=== PATIENT | female | born 1965 | race African-American/Black ===

== ENCOUNTER 2016-08-18 15:46 | Emergency (ER) | payer MEDICARE, MEDICAID ==
--- NOTE | 2016-08-18 16:04 | ER Document Report ---
ED Medical Screen (RME) - General Stated Complaint: ABDOMINAL PAIN Time seen by provider: 16:01 Mode of Arrival: Ambulatory Information source: Patient Notes: 51 yo female c/o burning periumbilical abdominal pain for 3 days. Initially intermittent, now constant since last night. LMP january or february. Hx hysterectomy. Constipated few weeks , having to use mag citrate. No dusuria. No fever or chills. TRAVEL OUTSIDE OF THE [place] IN LAST 30 DAYS: No - Related Data Allergies/Adverse Reactions: No Known Allergies Allergy (Verified 08/18/16 15:59) Past Medical History - Past Medical History Cardiac Medical History: Reports: Hx Hypertension Pulmonary Medical History: Reports: Hx Bronchitis Neurological Medical History: Reports: Hx Migraine Psychiatric Medical History: Reports: Hx Bipolar Disorder, Hx Depression - Immunizations Hx Diphtheria, Pertussis, Tetanus Vaccination: Yes Physical Exam - Vital signs Vitals: Temp Pulse Resp BP Pulse Ox 98.4 F 86 17 125/71 100 08/18/16 16:01 08/18/16 16:01 08/18/16 16:01 08/18/16 16:01 08/18/16 16:01 Course - Vital Signs Vital signs: Temp Pulse Resp BP Pulse Ox 98.4 F 86 17 125/71 100 08/18/16 16:01 08/18/16 16:01 08/18/16 16:01 08/18/16 16:01 08/18/16 16:01
[2016-08-18 16:39] LABS: ABSOLUTE LYMPHOCYTES (AUTO) 2.1 10^3/uL (0.5-4.7); ABSOLUTE MONOCYTES (AUTO) 0.5 10^3/uL (0.1-1.4); ABSOLUTE NEUT (AUTO) 3.9 10^3/uL (1.7-8.2); BASOPHILS % (AUTO) 0.5 % (0-2); EOSINOPHILS % (AUTO) 0.4 % (0-6); HEMATOCRIT 42.2 % (36.0-47.0); HEMOGLOBIN 13.9 g/dL (12.0-15.5); HGB HCT DIFFERENCE -0.5; LYMPHOCYTES % (AUTO) 32.1 % (13-45); MEAN CORPUSCULAR HGB CONC 32.8 g/dL (32.0-36.0); MEAN CORPUSCULAR VOLUME 82 fl (80-97); MONOCYTES % (AUTO) 7.5 % (3-13); RED BLOOD COUNT 5.14 10^6/uL (3.72-5.28); RED CELL DISTRIBUTION WIDTH 14.8 % (11.5-14.0); SEGMENTED NEUTROPHILS % (AUTO) 59.5 % (42-78); WHITE BLOOD COUNT 6.6 10^3/uL (4.0-10.5)
[2016-08-18 16:43] LABS: APPEARANCE,URINE CLOUDY; BILIRUBIN,URINE NEGATIVE (NEGATIVE); GLUCOSE, URINE NEGATIVE (NEGATIVE); KETONES,URINE NEGATIVE (NEGATIVE); LEUKOCYTE ESTERASE,URINE NEGATIVE (NEGATIVE); NITRITE,URINE NEGATIVE (NEGATIVE); PROTEIN,URINE NEGATIVE (NEGATIVE); URINE SPECIFIC GRAVITY 1.024; UROBILINOGEN,URINE NEGATIVE mg/dL (<2.0)
[2016-08-18 16:57] LABS: ALANINE AMINOTRANSFERASE 38 U/L (9-52); ALKALINE PHOSPHATASE 118 U/L (38-126); ANION GAP 11 (5-19); ASPARTATE AMINO TRANSFERASE 17 U/L (14-36); BILIRUBIN,TOTAL 0.5 mg/dL (0.2-1.3); BLOOD UREA NITROGEN 12 mg/dL (7-20); CALCIUM 9.7 mg/dL (8.4-10.2); CARBON DIOXIDE 31 mmol/L (22-30); CHLORIDE 101 mmol/L (98-107); CREATININE RESULT 1.12 mg/dL (0.52-1.25); GLUCOSE 100 mg/dL (75-110); LIPASE 135.9 U/L (23-300); POTASSIUM 4.3 mmol/L (3.6-5.0); SODIUM 142.8 mmol/L (137-145); TOTAL PROTEIN 7.7 g/dL (6.3-8.2)
[2016-08-18] MEDS ORDERED: LANSOPRAZOLE 30 MG TAB.RAP.DR PO ONE (17:51)
[2016-08-18] MEDS ORDERED: SUCRALFATE 1 GM TABLET PO ONE (17:51)
--- NOTE | 2016-08-18 18:04 | ER Document Report ---
ED General - General Chief Complaint: Abdominal Pain Stated Complaint: ABDOMINAL PAIN Time seen by provider: 18:40 Mode of Arrival: Ambulatory Information source: Patient Notes: 51-year-old female with 2 week history of burning periumbilical and epigastric pain she says her goes up into her midline lower chest. He reports occasional burping with this. She reports that sometimes worse with lying down. She denies vomiting, fever, chills, shortness of breath, diaphoresis, hematemesis, hematochezia, melena, or dysuria. She reports nonproductive cough occasionally over the past month. Patient says she was seen facility [facility] for this several weeks ago and placed on naproxen and tramadol which she patient broke out in a rash with one of those drugs and is not taking them now. He reports he has not seen another healthcare provider for this and hasn't had the symptoms prior to that. Physical Exam: General: Alert, appears well. HEENT: Normocephalic. Atraumatic. PERRLA. Extraocular movements intact. Oropharynx clear. Neck: Supple. Non-tender. Respiratory: No respiratory distress. Clear and equal breath sounds bilaterally. Nontender to palpation Cardiovascular: Regular rate and rhythm. PMI not displaced Abdominal: Normal Inspection. Trace epigastric tenderness bowel sounds positive soft no guarding rebound rigidity. No distension. Back: Non-tender. No deformity or step off. Extremities: Moves all four extremities. No gross deformities Neurological: Moves all extremities well amylase without difficulty speech clear Psychological: Normal affect. Normal Mood. Skin: Warm. Dry. Normal color.am TRAVEL OUTSIDE OF THE [place] IN LAST 30 DAYS: No - Related Data Allergies/Adverse Reactions: No Known Allergies Allergy (Verified 08/18/16 15:59) Past Medical History - General Information source: Patient - Social History Smoking Status: Never Smoker Chew tobacco use (# tins/day): No Frequency of alcohol use: None Drug Abuse: None Family History: Hypertension. denies: CAD Patient has suicidal ideation: No Patient has homicidal ideation: No - Past Medical History Cardiac Medical History: Reports: Hx Hypertension Pulmonary Medical History: Reports: Hx Bronchitis Neurological Medical History: Reports: Hx Migraine Psychiatric Medical History: Reports: Hx Bipolar Disorder, Hx Depression - Immunizations Hx Diphtheria, Pertussis, Tetanus Vaccination: Yes Review of Systems - Review of Systems Constitutional: denies: Chills, Fever EENT: denies: Ear pain, Throat pain Cardiovascular: Chest pain Respiratory: denies: Short of breath Gastrointestinal: Abdominal pain. denies: Vomiting, Blood in vomit, Black stools, Rectal bleeding Genitourinary: denies: Burning Musculoskeletal: denies: Back pain, Leg swelling, Ankle swelling Hematologic/Lymphatic: denies: Swollen glands Neurological/Psychological: denies: Weakness, Numbness Physical Exam - Vital signs Vitals: Temp Pulse Resp BP Pulse Ox 98.4 F 86 17 125/71 100 08/18/16 16:01 08/18/16 16:01 08/18/16 16:01 08/18/16 16:01 08/18/16 16:01 Course - Re-evaluation Re-evalutation: 08/18/16 18:33 Patient has an exam and history consistent with GERD or gastritis. We'll discharge her on Prevacid and Carafate and ask her to follow her physician Dr. halle Ag next week for recheck. Her presentation is very low risk for acute coronary syndrome, pulmonary embolism, or other life-threatening conditions. 08/18/16 18:34 - Vital Signs Vital signs: Temp Pulse Resp BP Pulse Ox 98.4 F 86 17 125/71 100 08/18/16 16:01 08/18/16 16:01 08/18/16 16:01 08/18/16 16:01 08/18/16 16:01 - Laboratory Result Diagrams: 08/18/16 16:25 08/18/16 16:25 Laboratory results interpreted by me: 08/18/16 08/18/16 16:25 16:25 RDW 14.8 H Carbon Dioxide 31 H Est GFR (Non-Af Amer) 52 L - EKG Interpretation by Me Additional EKG results interpreted by me: 08/18/16 18:33 EKG reviewed by myself sinus rhythm 66 no acute change no significant change compared with 08/12/2014 Discharge - Discharge Clinical Impression: Gastritis Qualifiers: Gastritis type: unspecified gastritis Chronicity: acute Gastritis bleeding: without bleeding Qualified Code(s): K29.00 - Acute gastritis without bleeding GERD (gastroesophageal reflux disease) Qualifiers: Esophagitis presence: esophagitis presence not specified Qualified Code(s): K21.9 - Gastro-esophageal reflux disease without esophagitis Condition: Stable Disposition: HOME, SELF-CARE Instructions: Abdominal Pain ([facility]) Additional Instructions: Gastritis You have an inflammation of the stomach called gastritis. This commonly causes upper abdominal pain, nausea, and vomiting. In severe cases, bleeding of the stomach lining can occur. Gastritis can be caused by bacteria or viruses , alcohol, or stomach-irritating drugs. Begin with sips of clear liquids. Take increasing amounts of fluid over the first 24 hours. Then start small amounts of bland foods (such as dry toast , applesauce, mashed potato). Gradually resume your usual diet. You should take antacids every two hours until the pain has subsided. Acid -suppressing drugs may be prescribed as well. Avoid aspirin, caffeine, tobacco , and alcohol. If the abdominal pain worsens, or there is evidence of major bleeding in the stomach (such as black, tarry stool, bloody or black vomit, or lightheadedness), you should return immediately. Call the doctor if you aren't improved in 24 to 36 hours. Prescriptions: Lansoprazole [Prevacid 30 Mg Odt Tablet] 30 mg PO BID #60 tab.rap. Sucralfate [Carafate 1 gm Tablet] 1 gm PO ACHS #120 tablet Referrals: MICHELLE AG MD [Primary Care Provider] - Follow up in 1 week
[2016-08-18 18:46] VITALS: BP 120/74
--- NOTE | 2016-08-18 21:38 | EKG REPORT ---
SEVERITY:- NORMAL ECG - SINUS RHYTHM : Confirmed by: Wil Sears 18-Aug-2016 21:37:36
== END 2016-08-18 18:47 | disposition home or self-care (01) ==
LOC: ER 15:46
DX: K29.00 Acute gastritis without bleeding (principal); K21.9 Gastro-esophageal reflux disease without esophagitis; R10.9 Unspecified abdominal pain; R10.13 Epigastric pain; R10.33 Periumbilical pain; R21 Rash and other nonspecific skin eruption
CPT/HCPCS: 93005; 99284; 36415; 87086; 83690; 85025; 81025; 80053; 81001; 93010; A9270 ×2

== ENCOUNTER → 2016-10-23 | Outpatient (CLI) | payer MEDICARE, MEDICAID | LOC: OD 10:40 | PROVIDERS: ATTEND Physician Assistant | DX: M54.6 Pain in thoracic spine (principal); M54.5 Low back pain | CPT/HCPCS: 72070; 72110 ==

== ENCOUNTER 2017-01-15 04:58 | Emergency (ER) | payer MEDICARE, MEDICAID ==
[2017-01-15 05:06] VITALS: BP 130/70
[2017-01-15] MEDS ORDERED: LIDOCAINE 4%/TETRACAINE 0.5%/EPI 0.18% 5 ML TOPICAL SOLN TOP ONE (05:15)
--- NOTE | 2017-01-15 05:15 | ER Document Report ---
HPI - HPI Patient complains to provider of: Possible abscess Onset: Other - This Onset/Duration: Gradual Quality of pain: Throbbing Pain Level: 2 Context: 51-year-old abstinant, denies , female complaining of a lesion on her right mons pubis that is getting larger and more painful. No fever or chills. No history of MRSA. She has had this in same location in the past and it busted on its own. Associated Symptoms: None Exacerbated by: Walking Relieved by: Denies Similar symptoms previously: No Recently seen / treated by doctor: No - ROS ROS below otherwise negative: Yes Systems Reviewed and Negative: Yes All other systems reviewed and negative - REPRODUCTIVE Reproductive: DENIES: : - DERM Skin Color: Normal, Rafael Hernandez Past Medical History - General Information source: Patient - Social History Smoking Status: Unknown if Ever Smoked Frequency of alcohol use: None Drug Abuse: None Lives with: Alone Family History: Hypertension. denies: CAD Patient has suicidal ideation: No Patient has homicidal ideation: No - Past Medical History Cardiac Medical History: Reports: Hx Hypertension Pulmonary Medical History: Reports: Hx Bronchitis Neurological Medical History: Reports: Hx Migraine Renal/ Medical History: Denies: Hx Peritoneal Dialysis Psychiatric Medical History: Reports: Hx Bipolar Disorder, Hx Depression - Immunizations Hx Diphtheria, Pertussis, Tetanus Vaccination: Yes Vertical Provider Document - CONSTITUTIONAL Agree With Documented VS: Yes Exam Limitations: No Limitations - INFECTION CONTROL TRAVEL OUTSIDE OF THE [place] IN LAST 30 DAYS: No - HEENT HEENT: Normocephalic - NECK Neck: Supple - RESPIRATORY O2 Sat by Pulse Oximetry: 100 - MUSCULOSKELETAL/EXTREMETIES Musculoskeletal/Extremeties: MAEW, FROM - NEURO Level of Consciousness: Awake, Alert, Appropriate - DERM Integumentary: Warm, Dry, Abscess - 1 cm firm follicular abscess right mons pubis Course - Vital Signs Vital signs: Temp Pulse Resp BP Pulse Ox 97.9 F 62 16 130/70 H 100 01/15/17 05:03 01/15/17 05:03 01/15/17 05:03 01/15/17 05:03 01/15/17 05:03 Procedures - Incision and Drainage Right Time completed: 06:29 Type: Simple Anesthetic type: 1% Lidocaine mL's of anesthetic: 3 Blade size: 11 I&D procedure: Betadine prep applied, Sterile dressing applied - packed with corner olf gauze Incision Method: Incision made by scalpel Amount/type of drainage: small pus/blood Discharge - Discharge Clinical Impression: Mons pubis sebaceous abscess, I and D Condition: Good Disposition: HOME, SELF-CARE Instructions: Abscess ([facility]), Post Incision and Drainage, Trimethoprim-Sulfa ( [facility]), Anti-Inflammatory Medication ([facility]) Additional Instructions: warm compress to er if worse take the antibiotics Prescriptions: Ibuprofen [Motrin 800 mg Tablet] 800 mg PO Q8HP PRN #20 tab PRN Reason: Sulfamethoxazole/Trimethoprim [Sulfamethoxazole-Tmp Ds Tablet] 1 each PO BID # 14 tablet Forms: Return to Work
[2017-01-15] MEDS ORDERED: SULFAMETHOXAZOLE/TRIMETHOPRIM 800-160 MG TABLET PO ONE (05:16)
[2017-01-15] MEDS ORDERED: IBUPROFEN 800 MG TABLET PO ONE (05:19)
[2017-01-15] MEDS ORDERED: MUPIROCIN 2% OINTMENT 22 GM TP ONE (06:31)
== END 2017-01-15 06:38 | disposition home or self-care (01) ==
LOC: ER 04:58
PROC: 0H99XZZ Drainage of Perineum Skin, External Approach (ICD-10-PCS; principal; 2017-01-15)
DX: L02.215 Cutaneous abscess of perineum (principal); I10 Essential (primary) hypertension
CPT/HCPCS: 99283; 56405; A9270 ×3; J3490

== ENCOUNTER 2017-01-22 16:30 | Emergency (ER) | payer MEDICARE, MEDICAID ==
--- NOTE | 2017-01-22 18:36 | ER Document Report ---
ED Dizziness/Weakness - General Chief Complaint: Dizziness Stated Complaint: LIGHT HEADED Time Seen by Provider: 01/22/17 18:31 Information source: Patient Notes: Patient is a very pleasant 51-year-old female with past medical history as recorded. She states she has had some intermittent "lightheadedness" and feeling "waves of fairly hot sensations" for the last 6 months. Patient has not had a menstrual period in 3 months. She denies any and all chest pain, abdominal pain, or palpitations. 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 Patient denies any aggravating or relieving factors to the symptoms. TRAVEL OUTSIDE OF THE [place] IN LAST 30 DAYS: No - HPI Patient complains to provider of: Dizziness Onset: Other - See above Onset/Duration: Sudden Quality of pain: No pain Severity: Mild Pain Level: Denies Context: Other - See above Associated symptoms: Other - See above Baseline gait: Walks w/o assistance - Related Data Allergies/Adverse Reactions: No Known Allergies Allergy (Verified 01/22/17 16:59) Past Medical History - General Information source: Patient - Social History Smoking Status: Unknown if Ever Smoked Chew tobacco use (# tins/day): No Smoking Education Provided: No Frequency of alcohol use: None Drug Abuse: None Family History: Hypertension. denies: CAD Patient has suicidal ideation: No Patient has homicidal ideation: No - Past Medical History Cardiac Medical History: Reports: Hx Hypertension Pulmonary Medical History: Reports: Hx Bronchitis Neurological Medical History: Reports: Hx Migraine Renal/ Medical History: Denies: Hx Peritoneal Dialysis Psychiatric Medical History: Reports: Hx Bipolar Disorder, Hx Depression - Immunizations Hx Diphtheria, Pertussis, Tetanus Vaccination: Yes Review of Systems - Review of Systems Constitutional: denies: Fever EENT: denies: Eye discharge, Nose discharge Respiratory: denies: Short of breath Gastrointestinal: denies: Vomiting Genitourinary: denies: Dysuria Musculoskeletal: denies: Leg swelling Skin: Other - no hives. denies: Rash Neurological/Psychological: Other - no slurred speech -: Yes All other systems reviewed and negative Physical Exam - Vital signs Notes: Reviewed vital signs and nursing note as charted by RN. CONSTITUTIONAL: Alert and oriented and responds appropriately to questions. Well -appearing; well-nourished HEAD: Normocephalic; atraumatic EYES: Sclerae non-icteric NECK: Supple without meningismus; non-tender CARD: Regular rate and rhythm; no murmurs, no clicks, no rubs, no gallops; symmetric distal pulses RESP: Normal chest excursion without splinting or tachypnea; breath sounds clear and equal bilaterally ABD/GI: Normal bowel sounds; non-distended; soft, non-tender BACK: The back appears normal and is non-tender to palpation, there is no CVA tenderness EXT: Normal ROM in all joints; non-tender to palpation; no cyanosis, no effusions, no edema SKIN: Normal color for age and race; warm; dry; good turgor; capillary refill < 2 seconds; no acute lesions noted NEURO: CN II through XII are intact. Moves all extremities equally; Motor and sensory function intact PSYCH: The patient's mood and manner are appropriate. Grooming and personal hygiene are appropriate. Course - Re-evaluation Re-evalutation: 01/22/17 18:35 Given the above history and physical examination, I believe that the patient most likely is going through menopause. I will check the patient's hemoglobin level, obtain an EKG, and reassess. 01/22/17 18:45 Heart rate 60, normal sinus rhythm, normal axis, no obvious ST elevation or depression. Normal EKG. 01/22/17 19:11 Hemoglobin as recorded. 01/22/17 19:57 Labs as recorded. Still no pain. VSS. Pt will be d/c'd home with strict return precautions and follow up with the primary OBGYN. - Laboratory Result Diagrams: 01/22/17 18:45 01/22/17 18:45 Laboratory results interpreted by me: 01/22/17 01/22/17 18:45 18:45 MCH 26.8 L RDW 14.3 H Creatinine 1.26 H Est GFR ( Amer) 55 L Est GFR (Non-Af Amer) 45 L Discharge - Discharge Clinical Impression: Hot flashes due to menopause Condition: Good Disposition: HOME, SELF-CARE Additional Instructions: Come back immediately with any headache, chest pain, abdominal pain, weakness or numbness, or any other acute problems. Please follow-up with your CONSTRUCTION SCHED[employer]ER as we have discussed. Referrals: DOLORES GUTHRIE PA-C [Primary Care Provider] - Follow up as needed
[2017-01-22 19:04] LABS: ABSOLUTE LYMPHOCYTES (AUTO) 1.7 10^3/uL (0.5-4.7); ABSOLUTE MONOCYTES (AUTO) 0.4 10^3/uL (0.1-1.4); ABSOLUTE NEUT (AUTO) 2.2 10^3/uL (1.7-8.2); BASOPHILS % (AUTO) 0.6 % (0-2); HEMATOCRIT 41.8 % (36.0-47.0); HEMOGLOBIN 13.4 g/dL (12.0-15.5); HGB HCT DIFFERENCE -1.6; LYMPHOCYTES % (AUTO) 38.3 % (13-45); MEAN CORPUSCULAR HEMOGLOBIN 26.8 pg (27.0-33.4); MEAN CORPUSCULAR VOLUME 84 fl (80-97); MONOCYTES % (AUTO) 8.4 % (3-13); RED BLOOD COUNT 4.99 10^6/uL (3.72-5.28); RED CELL DISTRIBUTION WIDTH 14.3 % (11.5-14.0); SEGMENTED NEUTROPHILS % (AUTO) 51.7 % (42-78); WHITE BLOOD COUNT 4.3 10^3/uL (4.0-10.5)
[2017-01-22 19:19] LABS: ANION GAP 9 (5-19); BLOOD UREA NITROGEN 11 mg/dL (7-20); CALCIUM 9.4 mg/dL (8.4-10.2); CARBON DIOXIDE 25 mmol/L (22-30); CHLORIDE 105 mmol/L (98-107); CREATININE RESULT 1.26 mg/dL (0.52-1.25); GLUCOSE 90 mg/dL (75-110); POTASSIUM 4.9 mmol/L (3.6-5.0); SODIUM 138.9 mmol/L (137-145)
--- NOTE | 2017-01-23 09:17 | EKG REPORT ---
SEVERITY:- NORMAL ECG - SINUS RHYTHM : Confirmed by: Wil Sears 23-Jan-2017 09:17:15
== END 2017-01-22 20:17 | disposition home or self-care (01) ==
LOC: ER 16:30
DX: N95.1 Menopausal and female climacteric states (principal); R42 Dizziness and giddiness
CPT/HCPCS: 36415; 80048; 81025; 84484; 85025; 93005; 93010; 99284

== ENCOUNTER 2017-05-09 16:27 | Emergency (ER) | payer MEDICARE, MEDICAID ==
[2017-05-09] MEDS ORDERED: NORMAL SALINE 1000 ML 1,000 ML IV ONE (17:55)
--- NOTE | 2017-05-09 17:57 | ER Document Report ---
ED Medical Screen (RME) - General Chief Complaint: Weakness Stated Complaint: SHORTNESS OF BREATH Time Seen by Provider: 05/09/17 17:45 Notes: 51-year-old female with a plethora of complaints including hot flashes, dizziness and standing, headache, shortness of breath, night sweats and fatigue. States that these have all been going on for months and is associated with right arm pain. TRAVEL OUTSIDE OF THE [place] IN LAST 30 DAYS: No - Related Data Allergies/Adverse Reactions: No Known Allergies Allergy (Verified 01/22/17 16:59) Home Medications: Current Home Medications Clonidine HCl [Clonidine HCl ER] 0.1 mg PO TID 05/09/17 [History] Hydrocodone/Acetaminophen [Hydrocodon-Acetaminophen 5-325] 1 each PO BID PRN [History] Past Medical History - Social History Frequency of alcohol use: None Drug Abuse: None - Past Medical History Cardiac Medical History: Reports: Hx Hypertension Pulmonary Medical History: Reports: Hx Bronchitis Neurological Medical History: Reports: Hx Migraine Renal/ Medical History: Denies: Hx Peritoneal Dialysis Musculoskeltal Medical History: Reports Hx Arthritis - back Psychiatric Medical History: Reports: Hx Bipolar Disorder, Hx Depression Surgical Hx: Negative - Immunizations Hx Diphtheria, Pertussis, Tetanus Vaccination: Yes Physical Exam - Vital signs Vitals: Temp Pulse Resp BP Pulse Ox 97.7 F 57 L 18 127/73 H 100 05/09/17 16:39 05/09/17 16:39 05/09/17 16:39 05/09/17 16:39 05/09/17 16:39 Interpretation: Bradycardic - Notes Notes: Appears anxious and has mildly pressured speech. Course - Vital Signs Vital signs: Temp Pulse Resp BP Pulse Ox 97.7 F 57 L 20 127/73 H 100 05/09/17 16:39 05/09/17 16:39 05/09/17 17:44 05/09/17 16:39 05/09/17 16:39
[2017-05-09 18:47] LABS: ABSOLUTE LYMPHOCYTES (AUTO) 2.2 10^3/uL (0.5-4.7); ABSOLUTE MONOCYTES (AUTO) 0.5 10^3/uL (0.1-1.4); ABSOLUTE NEUT (AUTO) 2.5 10^3/uL (1.7-8.2); BASOPHILS % (AUTO) 0.8 % (0-2); EOSINOPHILS % (AUTO) 0.8 % (0-6); HEMATOCRIT 41.1 % (36.0-47.0); HEMOGLOBIN 13.8 g/dL (12.0-15.5); HGB HCT DIFFERENCE 0.3; LYMPHOCYTES % (AUTO) 41.7 % (13-45); MEAN CORPUSCULAR HEMOGLOBIN 27.5 pg (27.0-33.4); MEAN CORPUSCULAR HGB CONC 33.7 g/dL (32.0-36.0); MEAN CORPUSCULAR VOLUME 82 fl (80-97); MONOCYTES % (AUTO) 8.9 % (3-13); RED BLOOD COUNT 5.03 10^6/uL (3.72-5.28); RED CELL DISTRIBUTION WIDTH 14.5 % (11.5-14.0); SEGMENTED NEUTROPHILS % (AUTO) 47.8 % (42-78); WHITE BLOOD COUNT 5.3 10^3/uL (4.0-10.5)
[2017-05-09 19:06] LABS: ALANINE AMINOTRANSFERASE 23 U/L (9-52); ALBUMIN 4.1 g/dL (3.5-5.0); ALKALINE PHOSPHATASE 145 U/L (38-126); ANION GAP 10 (5-19); ASPARTATE AMINO TRANSFERASE 19 U/L (14-36); BILIRUBIN,DIRECT 0.3 mg/dL (0.0-0.4); BILIRUBIN,TOTAL 0.6 mg/dL (0.2-1.3); BLOOD UREA NITROGEN 11 mg/dL (7-20); CALCIUM 9.8 mg/dL (8.4-10.2); CARBON DIOXIDE 28 mmol/L (22-30); CHLORIDE 104 mmol/L (98-107); CREATINE KINASE 154 U/L (30-135); CREATININE RESULT 1.06 mg/dL (0.52-1.25); GLUCOSE 90 mg/dL (75-110); POTASSIUM 4.9 mmol/L (3.6-5.0); SODIUM 141.8 mmol/L (137-145); TOTAL PROTEIN 7.5 g/dL (6.3-8.2)
[2017-05-09 19:23] LABS: CREATINE KINASE MB 0.94 ng/mL (<4.55); TROPONIN I < 0.012 ng/mL
--- NOTE | 2017-05-09 19:33 | ER Document Report ---
ED General - General Mode of Arrival: Ambulatory Information source: Patient TRAVEL OUTSIDE OF THE [place] IN LAST 30 DAYS: No <GOPISHAHIDCAYDEN - Last Filed: 05/09/17 19:41> <PENNY CONTRERASALL - Last Filed: 05/09/17 20:34> - General Chief Complaint: Weakness Stated Complaint: SHORTNESS OF BREATH Time Seen by Provider: 05/09/17 17:45 Notes: Patient is a 51-year-old female presented emergency department for multiple complaints that has been going on for the past several months. Her complaints include hot flashes, dizziness when standing, headache, night sweats, fatigue, and lack of appetite. Patient states that she also has right arm pain which has been present for quite some time. Patient has a history of anxiety, depression, and bipolar disorder. Patient states she stopped taking her medications a few days ago because she was tired of taking medications when she didn't feel good. Patient states she was wheezing when she came in but she is not any more. Patient told triage that she takes a sleeping pill. Patient states her last menstrual period was in January or February of this year. Patient states she has seen her PCP about these symptoms and she was given a medication "for hot flashes." Patient has no known allergies. (CAYDEN HORN) This 51-year-old female patient comes emergency room complaining of "when I wake up I get real dizzy and I gets hot like him running a fever". This is been going on for several months. She was seen here on 01/22/2017 complaining of being lightheaded for 6 months at that time negative workup. She complains of hot flashes, and unable to sleep for several months. Her doctor diagnosed menopause and put her on some unknown medication. She also complains of severe headaches when she wakes up. She does have a diagnosis of bipolar disorder and stopped taking her medications, she is vague about when she stopped, and she cannot tell me the name of any of the medication she is supposed to be taking. When she checked then she wrote down that she was wheezing, I asked her about it and she claims she was wheezing when she came in but it has spontaneously resolved. She also complains that she is "I am tired, weak, do not feel like eating". She states she has not been able to eat. This is been going on for quite some time also. Another complaint was pain in the right upper arm which is been getting worse over some time. Review of records shows she weighed 97.3 kg 3 months ago, she is 99.3 kg today. (PRICILLA CONTRERAS) - Related Data Allergies/Adverse Reactions: No Known Allergies Allergy (Verified 01/22/17 16:59) Home Medications: Current Home Medications Clonidine HCl [Clonidine HCl ER] 0.1 mg PO TID 05/09/17 [History] Hydrocodone/Acetaminophen [Hydrocodon-Acetaminophen 5-325] 1 each PO BID PRN [History] Past Medical History - General Information source: Patient - Social History Smoking Status: Never Smoker Cigarette use (# per day): No Chew tobacco use (# tins/day): No Smoking Education Provided: No Frequency of alcohol use: None Drug Abuse: None Family History: Hypertension Patient has suicidal ideation: No Patient has homicidal ideation: No - Past Medical History Cardiac Medical History: Reports: Hx Hypertension Pulmonary Medical History: Reports: Hx Bronchitis Neurological Medical History: Reports: Hx Migraine Musculoskeltal Medical History: Reports Hx Arthritis - back Psychiatric Medical History: Reports: Hx Bipolar Disorder, Hx Depression Surgical Hx: Negative - Immunizations Hx Diphtheria, Pertussis, Tetanus Vaccination: Yes <CAYDEN HORN - Last Filed: 05/09/17 19:41> Review of Systems - Review of Systems Constitutional: See HPI, Malaise, Weakness EENT: No symptoms reported Cardiovascular: See HPI, Dizziness Gastrointestinal: See HPI, Poor appetite Genitourinary: No symptoms reported Female Genitourinary: No symptoms reported Musculoskeletal: No symptoms reported Skin: See HPI Hematologic/Lymphatic: No symptoms reported Neurological/Psychological: See HPI, Headaches -: Yes All other systems reviewed and negative <CAYDEN HORN - Last Filed: 05/09/17 19:41> Physical Exam - Vital signs Interpretation: Normal <CAYDEN HORN - Last Filed: 05/09/17 19:41> <PRICILLA CONTRERAS - Last Filed: 05/09/17 20:34> - Vital signs Vitals: Temp Pulse Resp BP Pulse Ox 97.7 F 57 L 18 127/73 H 100 05/09/17 16:39 05/09/17 16:39 05/09/17 16:39 05/09/17 16:39 05/09/17 16:39 - Notes Notes: GENERAL: Alert, interacts well. No acute distress. HEAD: Normocephalic, atraumatic. EYES: Appear normal. Pupils equal, round, and reactive to light. ENT: Moist mucus membranes, tongue midline. NECK: Full range of motion. Supple. Trachea midline. No carotid bruits. LUNGS: Clear to auscultation bilaterally, no wheezes, rales, or rhonchi. No respiratory distress. HEART: Regular rate and rhythm. No murmurs, gallops, or rubs. ABDOMEN: Soft, non-tender. Non-distended. Normal bowel sounds. EXTREMITIES: Moves all 4 extremities spontaneously. Normal strength. No edema. NEUROLOGICAL: Alert and oriented x3. Normal speech. No focal neurological deficits. GCS 15. PSYCH: Normal affect, normal mood. SKIN: Warm, dry, normal turgor. No rashes or lesions noted. (CAYDEN HORN) Course - Laboratory Result Diagrams: 05/09/17 18:25 05/09/17 18:25 <CAYDEN HORN - Last Filed: 05/09/17 19:41> - Laboratory Result Diagrams: 05/09/17 18:25 05/09/17 18:25 - EKG Interpretation by Ma EKG shows normal: Sinus rhythm, [place], Intervals, QRS Complexes, ST-T Waves Rate: Normal - 58 Rhythm: NSR <PRICILLA CONTRERAS - Last Filed: 05/09/17 20:34> - Vital Signs Vital signs: Temp Pulse Resp BP Pulse Ox 97.7 F 57 L 22 H 119/68 98 05/09/17 16:39 05/09/17 16:39 05/09/17 19:01 05/09/17 19:01 05/09/17 19:01 - Laboratory Laboratory results interpreted by ny: 05/09/17 05/09/17 18:25 18:25 RDW 14.5 H Est GFR (Non-Af Amer) 55 L Alkaline Phosphatase 145 H Creatine Kinase 154 H Discharge <CAYDEN HORN - Last Filed: 05/09/17 19:41> <PRICILLA CONTRERAS - Last Filed: 05/09/17 20:34> - Discharge Clinical Impression: Weakness, Dizziness, Decreased appetite Fatigue Qualifiers: Fatigue type: unspecified Qualified Code(s): R53.83 - Other fatigue Condition: Stable Disposition: HOME, SELF-CARE Additional Instructions: Fatigue Fatigue can be caused by many medical and emotional problems. Fatigue can be an early symptom of infection, or can be caused by chronic infection. It can be a symptom of metabolic diseases like diabetes, hypothyroidism, or anemia. It can result from sleep problems such as sleep apnea. Fatigue can be a symptom of depression. Overuse of alcohol or caffeine can cause fatigue. Many drugs can cause fatigue, either as a side effect or when withdrawing from the drug. Until the evaluation is complete, try to keep up your normal activities. Get regular sleep hours, but avoid oversleeping. Try to get regular exercise. Eliminate alcohol, caffeine, and any unnecessary drugs, herbs, or medicines ( discuss any changes in prescription medicines with your doctor). Contact the doctor if there is any change for the worse. Weakness We did not find a definite cause for your weakness. This may require further medical tests. Weakness can be caused by infection, physical exhaustion , rapid weight loss, dehydration, or medicine side effects. Diseases of the muscles, heart, nerves, and blood vessels can make you weak. Sometimes the problem is simply depression or lack of exercise. You should get plenty of rest. Unless the doctor tells you otherwise, it's usually best to add short periods of regular mild exercise. Eat a nutritious diet with multiple small, low-sugar meals. If symptoms continue, additional medical evaluation will be necessary. Be sure to follow up as instructed. If you become very dizzy, nauseated, or feel like you're going to faint, lie down right away. Wait until the symptoms have passed before you get up again. Stand up slowly. Call the doctor or return if you develop chest pain, abdominal pain, severe headache, irregular heartbeat or very fast pulse, confusion, vision problems, fever, muscular pain, or any other new symptom. //////////////////////////////////////////////////////////////////////////////// //////////////////////////////////////////////////////////////////////////////// ///////////////// Lab work today including serum chemistries, blood counts, and thyroid function tests are all normal. The symptoms you have been experiencing for quite some time are most consistent with depression. You reported that you have stopped taking medication you were prescribed for depression and bipolar disorder. You should follow-up with your primary care provider next week, or your mental health provider to discuss these symptoms that have been going on for such a long time. RETURN TO THE EMERGENCY ROOM IF ANY NEW OR WORSENING SYMPTOMS. Forms: Return to Work Scribe Attestation: 05/09/17 20:23 I personally performed the services described in the documentation, reviewed and edited the documentation which was dictated to the scribe in my presence, and it accurately records my words and actions. (PRICILLA CONTRERAS) Scribe Documentation - Scribe Written by Patrick:: Patrick iLu 05/09/2017 19:30 acting as scribe for :: Flora <CAYDEN HORN - Last Filed: 05/09/17 19:41>
[2017-05-09 20:07] LABS: THYROID STIMULATING HORMONE 1.5 uIU/mL (0.47-4.68)
[2017-05-09 20:57] VITALS: BP 124/81
--- NOTE | 2017-05-10 00:17 | EKG REPORT ---
SEVERITY:- NORMAL ECG - SINUS RHYTHM : Confirmed by: Wil Sears 10-May-2017 00:17:06
== END 2017-05-09 21:03 | disposition home or self-care (01) ==
LOC: ER 16:27
DX: R53.1 Weakness (principal); R42 Dizziness and giddiness; R51 Headache; R61 Generalized hyperhidrosis; R53.83 Other fatigue; R53.81 Other malaise; R63.0 Anorexia; M79.621 Pain in right upper arm; G47.9 Sleep disorder, unspecified; I10 Essential (primary) hypertension; Z78.0 Asymptomatic menopausal state
CPT/HCPCS: 93005; 99285; 96360; 36415; 84439; 82553; 82550; 84443; 85025; 80053; 84484; 84481; 93010; J7030

== ENCOUNTER 2017-05-27 04:09 | Emergency (ER) | payer MEDICARE, MEDICAID ==
[2017-05-27 04:17] VITALS: BP 125/66
[2017-05-27] MEDS ORDERED: KETOROLAC TROMETHAMINE INJ/PF 30 MG/1 ML SDV IM ONE (04:37)
[2017-05-27] MEDS ORDERED: METHOCARBAMOL 500 MG TABLET PO ONE (04:37)
--- NOTE | 2017-05-27 04:43 | ER Document Report ---
ED General - General Chief Complaint: Back Pain Stated Complaint: BACK PAIN Time Seen by Provider: 05/27/17 04:22 Notes: Patient is a 52-year-old female presents with complaint of pain in the lower back. He says she has had this pain for a long time. She started seeing her doctor several months ago. States she has been on hydrocodone for approximately 3-4 months. She says she feels that the medicine is no longer working and that her pain is getting worse. She also notes that she has been having constipation as well. No leg weakness or numbness. She once had some pain radiating into right leg but the pain has since resolved. No loss of bowel control. No urinary retention. No fevers. No new trauma or injuries. No other complaints at this time. TRAVEL OUTSIDE OF THE [place] IN LAST 30 DAYS: No - Related Data Allergies/Adverse Reactions: No Known Allergies Allergy (Verified 01/22/17 16:59) Past Medical History - Social History Smoking Status: Unknown if Ever Smoked Frequency of alcohol use: None Drug Abuse: None Family History: Hypertension Patient has suicidal ideation: No Patient has homicidal ideation: No - Past Medical History Cardiac Medical History: Reports: Hx Hypertension Pulmonary Medical History: Reports: Hx Bronchitis Neurological Medical History: Reports: Hx Migraine Renal/ Medical History: Denies: Hx Peritoneal Dialysis Musculoskeltal Medical History: Reports Hx Arthritis - back Psychiatric Medical History: Reports: Hx Bipolar Disorder, Hx Depression - Immunizations Hx Diphtheria, Pertussis, Tetanus Vaccination: Yes Review of Systems - Review of Systems Notes: My Normal Review Basic REVIEW OF SYSTEMS: CONSTITUTIONAL : Denies fever, chills, or sweats. Denies recent illness. GASTROINTESTINAL: Denies abdominal pain. Denies nausea, vomiting, or diarrhea. Some constipation. GENITOURINARY: Denies difficulty urinating, painful urination, burning, frequency, or blood in urine. MUSCULOSKELETAL: Back pain SKIN: Denies rash or skin lesions. NEUROLOGICAL: Denies sensory or motor loss. ALL OTHER SYSTEMS REVIEWED AND NEGATIVE. Physical Exam - Vital signs Vitals: Temp Pulse Resp BP Pulse Ox 98.4 F 67 16 125/66 95 05/27/17 04:15 05/27/17 04:15 05/27/17 04:15 05/27/17 04:15 05/27/17 04:15 - Notes Notes: General Appearance: Well nourished, alert, cooperative, no acute distress, mild to moderate obvious discomfort. Vitals: reviewed, See vital signs table., No rhonci, No accessory muscle use, good air exchange bilaterally. Back: Patient has 2 very specific areas of tenderness. These areas are the paraspinal musculature around the L1-L2 area of his spine. Over these areas of the musculature is very tight. She does not have significant thoracic tenderness to palpation. She does not have any midline tenderness to palpation. Extremities: strength 5/5 in all extremities, good pulses in all extremities, pain with plantar dorsiflexion against resistance. Distal sensation intact. Patellar reflexes are 2 out of 4 and equal bilaterally. No swelling or tenderness in the extremities, no edema. Skin: warm, dry, appropriate color, no rash Neuro: speech clear, oriented x 3, normal affect, responds appropriately to questions. Sensation intact. Course - Re-evaluation Re-evalutation: 05/27/17 04:50 Patient has chronic back pain. I talked her length about opiate use. It seems that her pain is getting worse and opiates are not working. I talked her about chronic opiate use and how chronic use of opiates is actually detrimental to chronic back pain. Talked about this the upper regulation of opiate receptors and also the effect it has on the bowels being that since starting medication she has been very constipated. We talked about NSAID use in conjunction with muscle relaxers and also physical therapy. I told her she should talk to her primary care physician about alternative therapies outside of opiates such as physical therapy. Patient is agreeable to this. I will prescribe her some muscle relaxers to try to help with her recurrent pain. Encourage her to take NSAIDs as well as Tylenol to help with the pain as well. Patient is no signs of cauda equina syndrome. I feel she is safe to be discharged home. I encouraged her return to ER immediately if she has worsening pain, leg weakness or numbness, loss of bowel control, or inability to urinate. Dictation of this chart was performed using voice recognition software; therefore, there may be some unintended grammatical errors. - Vital Signs Vital signs: Temp Pulse Resp BP Pulse Ox 98.4 F 67 16 125/66 95 05/27/17 04:15 05/27/17 04:15 05/27/17 04:15 05/27/17 04:15 05/27/17 04:15 Discharge - Discharge Clinical Impression: Back pain Qualifiers: Back pain location: low back pain Chronicity: chronic Back pain laterality: bilateral Sciatica presence: without sciatica Qualified Code(s): M54.5 - Low back pain; G89.29 - Other chronic pain; G89.29 - Other chronic pain Condition: Good Disposition: HOME, SELF-CARE Additional Instructions: Please start to cut back on the hydrocodone use until you are no longer taking it. Continued use of hydrocodone will cause your body to become dependent on this medication and will not help the underlying problem with your back. Please talk to your doctor about alternative therapies such as physical therapy to help stretch and strengthen your back muscles. Please return to the ER immediately if you have leg weakness or numbness, loss of bowel control, inability to urinate, fevers, or feel unwell. Please take Motrin 600mg every 6 hours with food in conjunction with Tylenol 500mg every 4 hours. Please do not take Naprosyn, Aleve, or Aspirin when taking the Ibuprofen. Prescriptions: Methocarbamol [Robaxin 500 mg Tablet] 500 mg PO QID PRN #30 tablet PRN Reason: back pain
== END 2017-05-27 04:57 | disposition home or self-care (01) ==
LOC: ER 04:09
DX: G89.29 Other chronic pain (principal); M54.5 Low back pain; Z79.891 Long term (current) use of opiate analgesic; K59.00 Constipation, unspecified; I10 Essential (primary) hypertension
CPT/HCPCS: 99283; 96372; A9270; J1885

== ENCOUNTER 2017-10-22 05:51 | Emergency (ER) | payer MEDICARE, MEDICAID ==
--- NOTE | 2017-10-22 07:29 | ER Document Report ---
ED ENT - General Chief Complaint: Ear Pain Stated Complaint: BACK/EAR PAIN Time Seen by Provider: 10/22/17 07:27 Notes: Patient is a 52-year-old female who presents with sinus congestion and bilateral ear pain. She received a prescription for Flonase by her primary care physician yesterday, but has not filled it. She was complaining of chronic back pain is requesting a refill of her Munger because she is out of them. She denies saddle anesthesia, fevers, difficulty walking, change in bowel or bladder, ear drainage, numbness or tingling. TRAVEL OUTSIDE OF THE [place] IN LAST 30 DAYS: No - Related Data Allergies/Adverse Reactions: No Known Allergies Allergy (Verified 01/22/17 16:59) Past Medical History - General Information source: Patient - Social History Smoking Status: Unknown if Ever Smoked Family History: Hypertension, Reviewed & Not Pertinent - Past Medical History Cardiac Medical History: Reports: Hx Hypercholesterolemia, Hx Hypertension Pulmonary Medical History: Reports: Hx Asthma, Hx Bronchitis Neurological Medical History: Reports: Hx Migraine Renal/ Medical History: Denies: Hx Peritoneal Dialysis Musculoskeltal Medical History: Reports Hx Arthritis - back Psychiatric Medical History: Reports: Hx Bipolar Disorder, Hx Depression - anxiety - Immunizations Hx Diphtheria, Pertussis, Tetanus Vaccination: Yes Review of Systems - Review of Systems Notes: REVIEW OF SYSTEMS: CONSTITUTIONAL: -fevers, -chills EENT: -eye pain, -difficulty swallowing, +nasal congestion, +B/L ear pain CARDIOVASCULAR: -chest pain, -syncope. RESPIRATORY: -cough, -SOB GASTROINTESTINAL: -abdominal pain, -nausea, -vomiting, -diarrhea GENITOURINARY: -dysuria, -hematuria MUSCULOSKELETAL: +back pain, -neck pain SKIN: -rash or skin lesions. HEMATOLOGIC: -easy bruising or bleeding. LYMPHATIC: -swollen, enlarged glands. NEUROLOGICAL: -altered mental status or loss of consciousness, -headache, - neurologic symptoms PSYCHIATRIC: -anxiety, -depression. ALL OTHER SYSTEMS REVIEWED AND NEGATIVE. Physical Exam - Vital signs Vitals: Temp Pulse Resp BP Pulse Ox 98.4 F 62 18 119/73 97 10/22/17 06:08 10/22/17 06:08 10/22/17 06:08 10/22/17 06:08 10/22/17 06:08 - Notes Notes: PHYSICAL EXAMINATION: GENERAL: Well-appearing, well-nourished and in no acute distress. HEAD: Atraumatic, normocephalic. EYES: Pupils equal round and reactive to light, extraocular movements intact, sclera anicteric, conjunctiva are normal. ENT: B/L maxillary nares patent, oropharynx clear without exudates. Moist mucous membranes. Fluid behind B/L TMs. NECK: Normal range of motion, supple without lymphadenopathy LUNGS: Breath sounds clear to auscultation bilaterally and equal. No wheezes rales or rhonchi. HEART: Regular rate and rhythm without murmurs ABDOMEN: Soft, nontender, normoactive bowel sounds. No guarding, no rebound. No masses appreciated. EXTREMITIES: Normal range of motion, no pitting or edema. No cyanosis. NEUROLOGICAL: Cranial nerves grossly intact. Normal speech, normal gait. Normal sensory and motor exams. BACK: PSYCH: Normal mood, normal affect. SKIN: Warm, Dry, normal turgor, no rashes or lesions noted. Course - Re-evaluation Re-evalutation: Patient appears well. Fluid behind her ear is related to her sinus congestion and instructed her to begin antihistamines and nasal steroids. Her back pain is chronic in nature and told her to use anti-inflammatories and follow-up with her primary care physician for a refill of her Munger. No red flag signs for low back pain at this time. - Vital Signs Vital signs: Temp Pulse Resp BP Pulse Ox 97.8 F 69 18 124/78 98 10/22/17 08:44 10/22/17 08:44 10/22/17 08:44 10/22/17 08:44 10/22/17 08:44 Discharge - Discharge Clinical Impression: Sinus congestion Ear pain Qualifiers: Laterality: bilateral Qualified Code(s): H92.03 - Otalgia, bilateral Chronic back pain Qualifiers: Back pain location: low back pain Back pain laterality: unspecified Sciatica presence: without sciatica Qualified Code(s): M54.5 - Low back pain Condition: Stable Disposition: HOME, SELF-CARE Additional Instructions: Take the Zyrtec and use the Flonase to help with her sinus congestion and to help the fluid to drain from behind your ears. Follow-up with your primary care physician to discuss further pain management for your chronic back pain. Sinusitis You have sinusitis, an infection of the sinus cavities of the face. The sinuses are air-filled chambers which open into the inside of the nose. Avoid chemical fumes, pollens, dusts, and smoke (especially cigarette smoke ). Keep the air humidified in your bedroom and work area and take plenty of liquids by mouth. This condition can be serious if the infection spreads. If your symptoms worsen, or if you develop severe headache, high fever, stiff neck, or a rash, you must call the doctor or return for re-evaluation. LOW BACK PAIN: Three out of every four people will have an episode of disabling back pain during their lifetime. Most commonly the pain is due to straining of the muscles and ligaments in the low back. Usual treatment includes: (1) Rest on a firm surface. Avoid lying on your stomach. (2) Ice pack the painful area. After a few days, gentle heat may be used intermittently to relax the area, or ice packs can be continued. (3) Medication may be needed -- muscle relaxers and antiinflammatory medicines are commonly used. (4) As the back improves, exercises are prescribed to strengthen the back and abdominal muscles. Your doctor will advise you on the proper care for your back at each stage in your recovery. You may be better in a few days -- or healing may take several weeks. If new symptoms of a "herniated disc" (radiation of pain, numbness, or tingling down the back of the leg or weakness in the leg) occur, you should be re-examined. Further testing may be necessary. ICE PACKS: Apply ice packs frequently against the painful area. Many different schedules are recommended, such as "20 minutes on, 20 minutes off" or "one hour ice, two hours rest." If you need to work, you may need to go longer between ice treatments. You should plan to have the area ice packed AT LEAST one fourth of the time. The ice should be applied over the wrap, tape, or splint, or over a layer of cloth -- not directly against the skin. Some ice bags have a built-in cloth and can be put directly on the skin. WARM PACKS: After approximately two days, apply gentle heat (such as a heating pad or hot water bottle) for about 20 to 30 minutes about every two hours -- at least four times daily. Warmth and elevation will help you make a more rapid recovery , and will ease the pain considerably. Do not use HOT heat, and never apply heat for longer than 30 minutes. The continuous heat can invisibly damage skin and muscles -- even when no burn is seen on the surface. Damaged muscles can make you MORE sore. FOLLOW-UP CARE: If you have been referred to a physician for follow-up care, call the physician s office for an appointment as you were instructed or within the next two days. If you experience worsening or a significant change in your symptoms, notify the physician immediately or return to the Emergency Department at any time for re-evaluation. Prescriptions: Cetirizine HCl [Zyrtec 10 mg Tablet] 1 tab PO DAILY #14 tablet Referrals: DOLORES GUTHRIE PA-C [Primary Care Provider] - Follow up as needed
[2017-10-22] MEDS ORDERED: CETIRIZINE 10 MG TABLET PO ONE (08:11)
[2017-10-22 08:45] VITALS: BP 124/78
== END 2017-10-22 08:45 | disposition home or self-care (01) ==
LOC: ER 05:51
DX: R68.89 Other general symptoms and signs (principal); H92.03 Otalgia, bilateral; M54.5 Low back pain; E78.00 Pure hypercholesterolemia, unspecified; I10 Essential (primary) hypertension
CPT/HCPCS: 99282; A9270

== ENCOUNTER 2018-02-07 00:41 | Emergency (ER) | payer MEDICARE, MEDICAID ==
--- NOTE | 2018-02-07 01:29 | ER Document Report ---
ED General - General Chief Complaint: Headache Stated Complaint: BLOOD PRESSURE PROBLEM Time Seen by Provider: 02/07/18 01:27 Notes: The patient is a 52-year-old female, past medical history hypertension, bipolar , mild MR, presents by EMS with a mild headache. She has had this headache multiple times in the past and is not taking anything to help. She is also concerned that her blood pressure is elevated since her primary care physician cut her from 2 blood pressure medications to one blood pressure medication after her blood pressures running low. She said Tylenol Motrin has helped her in the past. She denies blurry vision, fevers, neck stiffness, nausea, vomiting , focal weakness, numbness, tingling or chest pain. TRAVEL OUTSIDE OF THE [place] IN LAST 30 DAYS: No - Related Data Allergies/Adverse Reactions: No Known Allergies Allergy (Verified 01/22/17 16:59) Past Medical History - General Information source: Patient - Social History Smoking Status: Unknown if Ever Smoked Family History: Hypertension, Reviewed & Not Pertinent - Past Medical History Cardiac Medical History: Reports: Hx Hypercholesterolemia, Hx Hypertension Pulmonary Medical History: Reports: Hx Asthma, Hx Bronchitis Neurological Medical History: Reports: Hx Migraine Renal/ Medical History: Denies: Hx Peritoneal Dialysis Musculoskeltal Medical History: Reports Hx Arthritis - back Psychiatric Medical History: Reports: Hx Bipolar Disorder, Hx Depression - anxiety - Immunizations Hx Diphtheria, Pertussis, Tetanus Vaccination: Yes Review of Systems - Review of Systems Notes: REVIEW OF SYSTEMS: CONSTITUTIONAL: -fevers, -chills EENT: -eye pain, -difficulty swallowing, -nasal congestion CARDIOVASCULAR: -chest pain, -syncope. RESPIRATORY: -cough, -SOB GASTROINTESTINAL: -abdominal pain, -nausea, -vomiting, -diarrhea GENITOURINARY: -dysuria, -hematuria MUSCULOSKELETAL: -back pain, -neck pain SKIN: -rash or skin lesions. HEMATOLOGIC: -easy bruising or bleeding. LYMPHATIC: -swollen, enlarged glands. NEUROLOGICAL: -altered mental status or loss of consciousness, +headache, - neurologic symptoms PSYCHIATRIC: -anxiety, -depression. ALL OTHER SYSTEMS REVIEWED AND NEGATIVE. Physical Exam - Vital signs Vitals: Temp Pulse Resp BP Pulse Ox 98.7 F 66 18 104/73 98 02/07/18 00:48 02/07/18 00:48 02/07/18 00:48 02/07/18 00:48 02/07/18 00:48 - Notes Notes: PHYSICAL EXAMINATION: GENERAL: Well-appearing, well-nourished and in no acute distress. HEAD: Atraumatic, normocephalic. EYES: Pupils equal round and reactive to light, extraocular movements intact, sclera anicteric, conjunctiva are normal. ENT: nares patent, oropharynx clear without exudates. Moist mucous membranes. NECK: Normal range of motion, supple without lymphadenopathy LUNGS: Breath sounds clear to auscultation bilaterally and equal. No wheezes rales or rhonchi. HEART: Regular rate and rhythm without murmurs ABDOMEN: Soft, nontender, normoactive bowel sounds. No guarding, no rebound. No masses appreciated. EXTREMITIES: Normal range of motion, no pitting or edema. No cyanosis. NEUROLOGICAL: Cranial nerves grossly intact. Normal speech, normal gait. Normal sensory and motor exams. PSYCH: Normal mood, normal affect. SKIN: Warm, Dry, normal turgor, no rashes or lesions noted. Course - Re-evaluation Re-evalutation: Patient's headache is exactly the same as her multiple prior headaches. After Tylenol and NSAIDs, she feels much better and her headache has resolved. Blood pressure is 128/68 instructed her to follow with her primary care physician she is having blood pressure concerns. No symptoms for stroke, meningitis, SAH or ICH at this time. Given strict return precautions and she understands. - Vital Signs Vital signs: Temp Pulse Resp BP Pulse Ox 98.7 F 66 18 104/73 98 02/07/18 00:48 02/07/18 00:48 02/07/18 00:48 02/07/18 00:48 02/07/18 00:48 Discharge - Discharge Clinical Impression: Headache Qualifiers: Headache type: unspecified Headache chronicity pattern: chronic headache Intractability: not intractable Qualified Code(s): R51 - Headache Condition: Stable Disposition: HOME, SELF-CARE Additional Instructions: HEADACHE: The physician does not feel that the headache you are experiencing has a serious underlying cause. Most headaches are due to emotional stress, with resultant muscle tension (tension headache). Occasionally, headaches are secondary to changes in the blood vessels of the scalp (vascular headache and migraine headache). Sometimes, a headache is the first symptom of another developing illness, such as a viral infection. You have no evidence of stroke, bleeding, meningitis, or other serious cause of your headache. The treatment of headaches varies with the severity and cause of the pain. Not all headaches need pain shots. In fact, there is evidence that using narcotics for headaches may make them worse in the long run. The physician will determine the therapy that's in your best interest. If you develop a fever, if the headache is different from any you've previously experienced, or if the headache progressively worsens, then call your physician at once or go to the emergency room. FOLLOW-UP CARE: If you have been referred to a physician for follow-up care, call the physician s office for an appointment as you were instructed or within the next two days. If you experience worsening or a significant change in your symptoms, notify the physician immediately or return to the Emergency Department at any time for re-evaluation. Referrals: DOLORES GUTHRIE PA-C [Primary Care Provider] - Follow up as needed
[2018-02-07] MEDS ORDERED: ACETAMINOPHEN 325 MG TABLET PO ONE (01:50)
[2018-02-07] MEDS ORDERED: NAPROXEN 250 MG TABLET PO ONE (01:50)
[2018-02-07 02:39] VITALS: BP 117/73
== END 2018-02-07 03:49 | disposition home or self-care (01) ==
LOC: ER 00:41
DX: R51 Headache (principal); I10 Essential (primary) hypertension; Z79.899 Other long term (current) drug therapy; J45.909 Unspecified asthma, uncomplicated
CPT/HCPCS: 99283; A9270 ×2

== ENCOUNTER 2018-04-26 21:19 | Emergency (ER) | payer MEDICARE, MEDICAID ==
[2018-04-27] MEDS ORDERED: DIPHENHYDRAMINE HCL 25 MG CAPSULE PO ONE (02:18)
--- NOTE | 2018-04-27 02:20 | ER Document Report ---
ED General - General Chief Complaint: Bee Sting Time Seen by Provider: 04/27/18 02:17 Notes: Patient is a 52-year-old female who presents after being stung on the right hand by a bee apparently earlier today. She states that she believe there is a stinger still in her ear. She notes some itching and irritation to the affected area. She has not tried anything to improve her symptoms. Nothing worsens her symptoms. She denies any shortness of breath, nausea, vomiting, diarrhea, lightheadedness or sensation of difficulty breathing or swallowing. TRAVEL OUTSIDE OF THE [place] IN LAST 30 DAYS: No - Related Data Allergies/Adverse Reactions: No Known Allergies Allergy (Verified 01/22/17 16:59) Past Medical History - General Information source: Patient - Social History Smoking Status: Never Smoker Chew tobacco use (# tins/day): No Frequency of alcohol use: None Drug Abuse: None Family History: Hypertension, Reviewed & Not Pertinent Patient has suicidal ideation: No Patient has homicidal ideation: No - Past Medical History Cardiac Medical History: Reports: Hx Hypercholesterolemia, Hx Hypertension Pulmonary Medical History: Reports: Hx Asthma, Hx Bronchitis Neurological Medical History: Reports: Hx Migraine Renal/ Medical History: Denies: Hx Peritoneal Dialysis Musculoskeletal Medical History: Reports Hx Arthritis - back Psychiatric Medical History: Reports: Hx Bipolar Disorder, Hx Depression - anxiety - Immunizations Hx Diphtheria, Pertussis, Tetanus Vaccination: Yes Review of Systems - Review of Systems Notes: Constitutional: Negative for fever. Cardiovascular: Negative for chest pain. Respiratory: Negative for shortness of breath. Gastrointestinal: Negative for vomiting Musculoskeletal: Negative for back pain. Skin: Positive for bee sting to the right hand Neurological: Negative for weakness or numbness. 10 point ROS negative except as marked above and in HPI. Physical Exam - Vital signs Vitals: Temp Pulse Resp BP Pulse Ox 97.5 F 67 20 131/81 H 99 04/26/18 22:27 04/26/18 22:27 04/26/18 22:27 04/26/18 22:27 04/26/18 22:27 Interpretation: Normal Notes: PHYSICAL EXAMINATION: GENERAL: Well-appearing, well-nourished and in no acute distress. HEAD: Atraumatic, normocephalic. EYES: sclera anicteric, conjunctiva are normal. ENT: Moist mucous membranes. NECK: Normal range of motion LUNGS: Normal work of breathing HEART: 2+ radial pulses bilaterally EXTREMITIES: no pitting or edema. No cyanosis. NEUROLOGICAL: No focal neurological deficits. Moves all extremities spontaneously and on command. PSYCH: Normal mood, normal affect. SKIN: Warm, Dry, normal turgor, there is possibly a very slight amount of erythema between the fourth and fifth digits of the right hand although this is minimally appreciable. No apparent retained foreign body. Course - Re-evaluation Re-evalutation: 04/27/18 02:19 Patient presents with a bee sting to her right hand. I do not appreciate any actual area of an apparent sting. She has no systemic reaction. There is no indication for labs or imaging. At this time will discharge with return precautions and follow-up recommendations. Verbal discharge instructions given a the bedside and opportunity for questions given. Medication warnings reviewed. Patient is in agreement with this plan and has verbalized understanding of return precautions and the need for primary care follow-up as needed. - Vital Signs Vital signs: Temp Pulse Resp BP Pulse Ox 98.2 F 63 20 125/75 99 04/27/18 02:36 04/27/18 02:36 04/27/18 02:36 04/27/18 02:36 04/27/18 02:36 Discharge - Discharge Clinical Impression: Bee sting Qualifiers: Encounter type: initial encounter Injury intent: accidental or unintentional Qualified Code(s): T63.441A - Toxic effect of venom of bees, accidental ( unintentional), initial encounter Condition: Good Disposition: HOME, SELF-CARE Additional Instructions: You have seen for a bee sting. Take antihistamine such as Benadryl or Claritin per box instructions as needed for itching or irritation to the area. You could alternatively or in conjunction with that treatment apply ice to the area. Return for any additional concerns you may have including spreading redness from the area, difficulty breathing, persistent vomiting. Follow-up with your general doctor as needed. Referrals: DOLORES GUTHRIE PA-C [NO LOCAL MD] - Follow up as needed
[2018-04-27 02:42] VITALS: BP 125/75
== END 2018-04-27 02:34 | disposition home or self-care (01) ==
LOC: ER 21:19
DX: T63.441A Toxic effect of venom of bees, accidental (unintentional), initial encounter (principal); Y92.9 Unspecified place or not applicable; E78.00 Pure hypercholesterolemia, unspecified; I10 Essential (primary) hypertension; G43.909 Migraine, unspecified, not intractable, without status migrainosus; F31.9 Bipolar disorder, unspecified
CPT/HCPCS: 99282; A9270

== ENCOUNTER 2018-06-25 13:16 | Emergency (ER) | payer MEDICARE, MEDICAID ==
[2018-06-25] MEDS ORDERED: KETOROLAC TROMETHAMINE 10 MG TABLET PO ONE (14:29)
--- NOTE | 2018-06-25 14:30 | ER Document Report ---
ED Extremity Problem, Lower - General Chief Complaint: Leg Pain Stated Complaint: LEG PAIN Time Seen by Provider: 06/25/18 14:24 Mode of Arrival: Ambulatory Information source: Patient Notes: Chief complaint: Right calf pain History of complain:( obtained from----patient) 53 years old presents today with 2-day history of sharp pain over the upper inner part of the calf muscle on the right side. It occurred while she was laying down and sleeping middle of the night. Since then he is progressively increasing pain. Denies any shortness of breath chest pain. Denies any injury. Denies any recent travel. No previous history Onset: As above Duration: 3 days Severity: Moderate Quality: Sharp Context: Unknown Exacerbating factor and relieving factors: Walking REVIEW OF SYSTEMS: CONSTITUTIONAL : Denies fever, chills, or sweats. Denies recent illness. EENT: Denies eye, ear, throat, or mouth pain or symptoms. Denies nasal or sinus congestion or discharge. Denies throat, tongue, or mouth swelling or difficulty swallowing. CARDIOVASCULAR: Denies chest pain. Denies palpitations or racing or irregular heart beat. Denies ankle edema. RESPIRATORY: Denies cough, cold, or chest congestion. Denies shortness of breath, difficulty breathing, or wheezing. GASTROINTESTINAL: Denies distention. Denies nausea, vomiting, or diarrhea. Denies blood in vomitus, stools, or per rectum. Denies black, tarry stools. Denies constipation. GENITOURINARY: Denies difficulty urinating, painful urination, burning, frequency, blood in urine, or discharge. FEMALE GENITOURINARY: Denies vaginal bleeding, heavy or abnormal periods, irregular periods. Denies vaginal discharge or odor. MUSCULOSKELETAL: Denies back or neck pain or stiffness. Denies joint pain or swelling. SKIN: Denies rash, lesions or sores. HEMATOLOGIC : Denies easy bruising or bleeding. LYMPHATIC: Denies swollen, enlarged glands. NEUROLOGICAL: Denies confusion or altered mental status. Denies passing out or loss of consciousness. Denies dizziness or lightheadedness. Denies headache. Denies weakness or paralysis or loss of use of either side. Denies problems with gait or speech. Denies sensory loss, numbness, or tingling. Denies seizures. PSYCHIATRIC: Denies anxiety or stress. Denies depression, suicidal ideation, or homicidal ideation. ALL OTHER SYSTEMS REVIEWED AND NEGATIVE. PHYSICAL EXAMINATION: GENERAL: Well-appearing, well-nourished and in no acute distress. HEAD: Atraumatic, normocephalic. EYES: Pupils equal round and reactive to light, extraocular movements intact, conjunctiva are normal. ENT: Nares patent, oropharynx clear without exudates. Moist mucous membranes. NECK: Normal range of motion, supple without lymphadenopathy LUNGS: Breath sounds clear to auscultation bilaterally and equal. No wheezes rales or rhonchi. HEART: Regular rate and rhythm without murmurs ABDOMEN: Soft, nontender, nondistended abdomen. No guarding, no rebound. No masses appreciated. Examination of genitals-deferred Musculoskeletal: Normal range of motion, no pitting or edema. No cyanosis. Except right calf the uptake in the region sharp tenderness were noted. No obvious swelling. NEUROLOGICAL: Cranial nerves grossly intact. Normal speech, normal gait. Normal sensory, motor exams PSYCH: Normal mood, normal affect. SKIN: Warm, Dry, normal turgor, no rashes or lesions noted. Dictation was performed using [email or web address] voice recognition software TRAVEL OUTSIDE OF THE [place] IN LAST 30 DAYS: No - Related Data Allergies/Adverse Reactions: No Known Allergies Allergy (Verified 06/25/18 13:18) Past Medical History - Social History Smoking Status: Never Smoker Chew tobacco use (# tins/day): No Frequency of alcohol use: None Drug Abuse: None Family History: Hypertension, Reviewed & Not Pertinent Patient has suicidal ideation: No Patient has homicidal ideation: No - Past Medical History Cardiac Medical History: Reports: Hx Hypercholesterolemia, Hx Hypertension Pulmonary Medical History: Reports: Hx Asthma, Hx Bronchitis Neurological Medical History: Reports: Hx Migraine Renal/ Medical History: Denies: Hx Peritoneal Dialysis Musculoskeletal Medical History: Reports Hx Arthritis - back Psychiatric Medical History: Reports: Hx Bipolar Disorder, Hx Depression - anxiety - Immunizations Hx Diphtheria, Pertussis, Tetanus Vaccination: Yes Physical Exam - Vital signs Vitals: Temp Pulse Resp BP Pulse Ox 98.3 F 71 18 107/77 99 06/25/18 13:23 06/25/18 13:23 06/25/18 13:23 06/25/18 13:23 06/25/18 13:23 Course - Vital Signs Vital signs: Temp Pulse Resp BP Pulse Ox 98.3 F 71 18 107/77 99 06/25/18 13:23 06/25/18 13:23 06/25/18 13:23 06/25/18 13:23 06/25/18 13:23 - Diagnostic Test Radiology reviewed: Reports reviewed - Venous Doppler was negative for DVT Discharge - Discharge Clinical Impression: Right calf pain Condition: Fair Disposition: HOME, SELF-CARE Instructions: Leg Pain Nonspecific ([facility]) Prescriptions: Hydrocodone Bit/Acetaminophen [Hydrocodon-Acetaminophen 5-325] 1 each PO TID # 10 tablet Naproxen [Naprosyn] 500 mg PO BID #30 tablet Referrals: JUAN JOSE TAI DO [Primary Care Provider] - Follow up as needed
[2018-06-25 16:17] VITALS: BP 105/72
--- NOTE | 2018-06-25 16:27 | RADIOLOGY REPORT (SQ) ---
EXAM DESCRIPTION: VENOUS UNILATERAL LOWER COMPLETED DATE/TIME: 06/25/2018 4:18 pm REASON FOR STUDY: Right calf pain COMPARISON: None. TECHNIQUE: Dynamic and static roger scale and color images acquired of the right leg venous system. S elected spectral images acquired with additional compression and augmentation maneuvers. The contrala teral common femoral vein and saphenofemoral junction were also imaged. Images stored on PACS. LIMITATIONS: None. FINDINGS: RIGHT COMMON FEMORAL: Normal phasicity, compression and augmentation. No visualized echogenic material on g ray scale. No defects on color images. FEMORAL: Normal compression and augmentation. No visualized echogenic material on roger scale. No defe cts on color images. POPLITEAL: Normal compression, augmentation. No visualized echogenic material on roger scale. No defec ts on color images. POSTERIOR TIBIAL AND PERONEAL VEINS: Normal compression, augmentation. No visualized echogenic materi al on roger scale. No defects on color images. GSV and SSV: Normal compression, augmentation. No visualized echogenic material on roger scale. No def ects on color images. ANY DEEP VENOUS INSUFFICIENCY: Not evaluated. ANY EVIDENCE OF POPLITEAL CYST: No. OTHER: No other significant finding. LEFT COMMON FEMORAL VEIN AND SAPHENOFEMORAL JUNCTION: Normal phasicity, compression and augmentation. No visualized echogenic material on roger scale. No de fects on color images. IMPRESSION: NO EVIDENCE OF DVT OR SVT IN THE RIGHT LEG. TECHNICAL DOCUMENTATION: JOB ID: [id number] [employer]- All Rights Reserved Reading location - IP/workstation name: [email or web address]
== END 2018-06-25 16:13 | disposition home or self-care (01) ==
LOC: ER 13:16
DX: M79.604 Pain in right leg (principal); E78.00 Pure hypercholesterolemia, unspecified; I10 Essential (primary) hypertension
CPT/HCPCS: 99284; 93971; A9270; J3490

== ENCOUNTER → 2018-07-29 | Outpatient (CLI) | payer MEDICARE, MEDICAID ==
--- NOTE | 2018-07-29 11:54 | RADIOLOGY REPORT (SQ) ---
EXAM DESCRIPTION: CHEST PA/LATERAL COMPLETED DATE/TIME: 07/29/2018 11:43 am REASON FOR STUDY: COUGH COMPARISON: 08/12/2014 EXAM PARAMETERS: NUMBER OF VIEWS: two views TECHNIQUE: Digital Frontal and Lateral radiographic views of the chest acquired. RADIATION DOSE: NA LIMITATIONS: none FINDINGS: LUNGS AND PLEURA: No opacities, masses or pneumothorax. No pleural effusion. MEDIASTINUM AND HILAR STRUCTURES: No masses or contour abnormalities. HEART AND VASCULAR STRUCTURES: Heart normal size. No evidence for failure. BONES: No acute findings. HARDWARE: None in the chest. OTHER: No other significant finding. IMPRESSION: No focal airspace disease or other evidence of acute cardiopulmonary process. TECHNICAL DOCUMENTATION: JOB ID: [id number] [employer]- All Rights Reserved Reading location - IP/workstation name: [email or web address]
== END ==
LOC: OD 11:31
PROVIDERS: ATTEND Nurse Practitioner Family
DX: R05 Cough (principal)
CPT/HCPCS: 71046

== ENCOUNTER 2018-08-11 13:09 | Emergency (ER) | payer MEDICARE, MEDICAID ==
[2018-08-11] MEDS ORDERED: METHOCARBAMOL 500 MG TABLET PO ONE (14:37)
--- NOTE | 2018-08-11 14:43 | ER Document Report ---
ED Neck/Back Problem - General Chief Complaint: Back Pain Stated Complaint: BACK/ARM PAIN Time Seen by Provider: 08/11/18 14:24 Mode of Arrival: Ambulatory Information source: Patient Notes: 53-year-old female presented to ED for complaint of right shoulder upper back and neck pain times 3 days after she mopped 16 isles of a store. She thinks she might have strained a muscle. She states she also has a little bit of low back pain. She states she took Motrin this morning with no relief. Patient is alert oriented respirations regular speaking in full sentences. Patient is able to move freely she has full range of motion to her shoulder. TRAVEL OUTSIDE OF THE [place] IN LAST 30 DAYS: No - HPI Patient complains to provider of: Pain, Injury - Possible, Neck, Upper back, Lower back Onset: Other - 3 days Where: Work Onset: Gradual Timing: Still present Quality of pain: Sharp Severity: Severe Pain Level: 5 Context: Other - Mopped 16 isles of store Associated symptoms: Lower back pain, Upper back pain, Other - shoulder Exacerbated by: Movement of neck, Movement of trunk Relieved by: Nothing Similar symptoms previously: Yes Recently seen / treated by doctor: No - Related Data Allergies/Adverse Reactions: No Known Allergies Allergy (Verified 06/25/18 13:18) Past Medical History - General Information source: Patient - Social History Smoking Status: Never Smoker Frequency of alcohol use: None Drug Abuse: None Occupation: House[employer] Lives with: Spouse/Significant other Family History: Hypertension, Reviewed & Not Pertinent Patient has suicidal ideation: No Patient has homicidal ideation: No - Past Medical History Cardiac Medical History: Reports: Hx Hypercholesterolemia, Hx Hypertension Pulmonary Medical History: Reports: Hx Asthma, Hx Bronchitis EENT Medical History: Reports: None Neurological Medical History: Reports: Hx Migraine Endocrine Medical History: Reports: None Renal/ Medical History: Reports: None Malignancy Medical History: Reports: None GI Medical History: Reports: None Musculoskeletal Medical History: Reports Hx Arthritis - back, Reports Hx Musculoskeletal Trauma - Muscle strain Skin Medical History: Reports None Psychiatric Medical History: Reports: Hx Bipolar Disorder, Hx Depression - anxiety Traumatic Medical History: Reports: None Infectious Medical History: Reports: None Surgical Hx: Negative Past Surgical History: Reports: None - Immunizations Hx Diphtheria, Pertussis, Tetanus Vaccination: Yes Review of Systems - Review of Systems Constitutional: No symptoms reported EENT: No symptoms reported Cardiovascular: No symptoms reported Respiratory: No symptoms reported Gastrointestinal: No symptoms reported Genitourinary: No symptoms reported Female Genitourinary: No symptoms reported Musculoskeletal: Back pain, Muscle pain, Muscle stiffness, Neck pain Skin: No symptoms reported Hematologic/Lymphatic: No symptoms reported Neurological/Psychological: No symptoms reported -: Yes All other systems reviewed and negative Physical Exam - Vital signs Vitals: Temp Pulse Resp BP Pulse Ox 97.9 F 66 16 118/64 96 08/11/18 13:36 08/11/18 13:36 08/11/18 13:36 08/11/18 13:36 08/11/18 13:36 Interpretation: Normal - General General appearance: Appears well, Alert - HEENT Head: Normocephalic, Atraumatic Eyes: Normal Pupils: PERRL - Respiratory Respiratory status: No respiratory distress Chest status: Nontender Breath sounds: Normal Chest palpation: Normal - Cardiovascular Rhythm: Regular Heart sounds: Normal auscultation Murmur: No - Abdominal Inspection: Normal Distension: No distension Bowel sounds: Normal Tenderness: Nontender Organomegaly: No organomegaly - Back Back: Tender - 2 right shoulder upper back and lower back. No: Deformity/step- off, CVA tenderness, Vertebra tenderness, Scars - Extremities General upper extremity: Normal inspection, Nontender, Normal color, Normal ROM, Normal temperature General lower extremity: Normal inspection, Nontender, Normal color, Normal ROM, Normal temperature, Normal weight bearing. No: Jewel's sign - Neurological Neuro grossly intact: Yes Cognition: Normal Orientation: AAOx4 Emory Coma Scale Eye Opening: Spontaneous Emory Coma Scale Verbal: Oriented [place] Coma Scale Motor: Obeys Commands Emory Coma Scale Total: 15 Speech: Normal Motor strength normal: LUE, RUE, LLE, RLE Sensory: Normal - Psychological Associated symptoms: Normal affect, Normal mood - Skin Skin Temperature: Warm Skin Moisture: Dry Skin Color: Normal Course - Re-evaluation Re-evalutation: 08/11/18 14:51 Patient symptoms consistent with a muscle strain. She did not fall. The pain started after she mopped a large area. Patient refused any days off. She stated she could not take even tonight off. Patient was given instructions on shoulder exercises, low back exercises, warm packs, ice packs, and use of muscle relaxers. Patient was given a Lidoderm patch while in the emergency room. Patient was instructed to follow-up with her primary doctor. She verbalized understanding and agreement with treatment plan. - Vital Signs Vital signs: Temp Pulse Resp BP Pulse Ox 98.3 F 61 16 127/74 H 100 08/11/18 14:50 08/11/18 14:50 08/11/18 14:50 08/11/18 14:50 08/11/18 14:50 Discharge - Discharge Clinical Impression: Right shoulder strain Qualifiers: Encounter type: initial encounter Qualified Code(s): S46.911A - Strain of unspecified muscle, fascia and tendon at shoulder and upper arm level, right arm, initial encounter Low back pain Qualifiers: Chronicity: acute Back pain laterality: bilateral Sciatica presence: without sciatica Qualified Code(s): M54.5 - Low back pain Condition: Stable Disposition: HOME, SELF-CARE Additional Instructions: Shoulder Injury You have injured your shoulder. This usually results from stretching or tearing of the tendons during trauma. Time and protection are required in order to heal properly. Many injuries are quite disabling, and should be taken seriously. Initial treatment includes cold packs and a sling to rest the shoulder. The physician has assessed the seriousness of your injury, and has outlined a treatment plan. Understand that this treatment may change, depending on how you progress. If a re-examination was recommended, it is important that you follow up as instructed. Some shoulder injuries (such as partial tear of the rotator cuff) are only suspected after you've failed to improve. Call us if there's severe pain, numbness, or loss of function. MUSCLE STRAIN: You have strained a muscle -- torn the fibers within the muscle. This often occurs with strenuous exertion, or during an injury that suddenly stretches the muscle. The seriousness of a strain varies. Some strains heal within days, others cause problems for months. X-rays cannot show a muscle strain. X-rays are taken only if symptoms suggest that a fracture could be present. The usual treatment of a muscle strain is rest and ice packs. Sometimes, a sling, splint, or crutches may be necessary to rest the muscle. The muscle can be used again once pain subsides. Severe strains require a special exercise and stretching program to prevent permanent stiffness and disability. Your doctor will advise you if this will be necessary. Call the doctor immediately if pain or swelling becomes severe, or if numbness or discoloration develop. LOW BACK PAIN: Three out of every four people will have an episode of disabling back pain during their lifetime. Most commonly the pain is due to straining of the muscles and ligaments in the low back. Usual treatment includes: (1) Rest on a firm surface. Avoid lying on your stomach. (2) Ice pack the painful area. After a few days, gentle heat may be used intermittently to relax the area, or ice packs can be continued. (3) Medication may be needed -- muscle relaxers and antiinflammatory medicines are commonly used. (4) As the back improves, exercises are prescribed to strengthen the back and abdominal muscles. Your doctor will advise you on the proper care for your back at each stage in your recovery. You may be better in a few days -- or healing may take several weeks. If new symptoms of a "herniated disc" (radiation of pain, numbness, or tingling down the back of the leg or weakness in the leg) occur, you should be re-examined. Further testing may be necessary. USE OF TYLENOL (ACETAMINOPHEN): Acetaminophen may be taken for pain relief or fever control. It's much safer than aspirin, offering a wider range of "safe" dosages. It is safe during . Some brand names are Tylenol, Panadol, Datril, Anacin 3, Tempra, and Liquiprin. Acetaminophen can be repeated every four hours. The following are maximum recommended dosages: WEIGHT Dose Drops Elixir Chewable(80mg) (LBS.) drprs=droppers tsp=teaspoon 6 40 mg 0.4 ml (1/2) 6-11 80 mg 0.8 ml (full) tsp 1 tab 12-16 120 mg 1 1/2 drprs 3/4 tsp 1 1/2 tabs 17-23 160 mg 2 drprs 1 tsp 2 tabs 24-30 240 mg 3 drprs 1 1/2 tsp 3 tabs 30-35 320 mg 2 tsp 4 tabs 36-41 360 mg 2 1/4 tsp 4 1/2 tabs 42-47 400 mg 2 1/2 tsp 5 tabs 48-53 480 mg 3 tsp 6 tabs 54-59 520 mg 3 1/4 tsp 6 1/2 tabs 60-64 560 mg 3 1/2 tsp 7 tabs 65-70 600 mg 3 3/4 tsp 7 1/2 tabs 71-76 640 mg 4 tsp 8 tabs 77-82 720 mg 4 1/2 tsp 9 tabs 83-88 800 mg 5 tsp 10 tabs >89 pounds or adults 650 mg to 900 mg Acetaminophen can be repeated every four hours. Maximum dose not to exceed 4000 mg a day. These maximum recommended dosages are slightly higher than the dosages written on the product container, but these dosages are very safe and below the toxic dosage for acetaminophen. Exercise Program for the Shoulder Since the shoulder moves in so many directions, the joint attachment is weak. Muscles provide most of the stability to the shoulder. You must exercise your shoulder to prevent painful instability or stiffening. PASSIVE - These may be begun within a few days of the injury. While standing, lean forward, allowing the arm to hang down towards the floor. Move the arm in small circles while slowly twisting your chest towards and away from the hanging arm. Do this for one minute. ACTIVE - These may be performed when the doctor gives permission. Begin with the arms at the sides. Raise the arms forward (shoulder's width apart) until they reach shoulder level. Then slowly swing both arms back until they are aiming straight out away from each other. Then bring them forward again, and finally, lower them to your sides. Repeat 20 to 30 times. As you improve, put weights in your hands for the exercise. Start with one pound, and work up to 10 pounds. Never use more than is comfortable. Athletes may work up to 30 pounds. ICE PACKS: Apply ice packs frequently against the painful area. Many different sche dules are recommended, such as "20 minutes on, 20 minutes off" or "one hour ice, two hours rest." If you need to work, you may need to go longer between ice treatments. You should plan to have the area ice packed AT LEAST one fourth of the time. The ice should be applied over the wrap, tape, or splint, or over a layer of cloth -- not directly against the skin. Some ice bags have a built-in cloth and can be put directly on the skin. WARM PACKS: After approximately two days, apply gentle heat (such as a heating pad or hot water bottle) for about 20 to 30 minutes about every two hours -- at least four times daily. Warmth and elevation will help you make a more rapid recovery, and will ease the pain considerably. Do not use HOT heat, and never apply heat for longer than 30 minutes. The continuous heat can invisibly damage skin and muscles -- even when no burn is seen on the surface. Damaged muscles can make you MORE sore. MUSCLE RELAXERS: Muscle relaxing medications are usually prescribed for acute muscle spasm or injury to the neck and back. They are often combined with antiinflammatory pain medication for increased relief. You may stop the muscle relaxer when the pain and stiffness have improved. Start the medication again if spasms recur. Muscle relaxers may cause drowsiness, especially with the first dose. Do not operate machinery or drive while under the effects of the medication. Most muscle relaxers last up to 24 hours. Do not combine the medication with alcohol. Stretching Exercises for the Back The physician has recommended that you begin stretching exercises for your back. These are often used even while the back is painful. However, you should notify the physician if the activities seem to increase your pain. PELVIC TILT: Lie flat on your back with knees bent. Tighten your stomach and buttock muscles so it flattens your lower back against the floor. Hold 10 seconds. Repeat 10 times, twice daily. KNEE RAISE: Lying on the back with knees bent, raise one knee to your chest, then the other. Hold both knees against the chest 10 seconds, then lower one knee at a time. Repeat 10 times, twice daily. PARTIAL TRUNK RAISE: Lie face down, arms at your sides. Keeping your waist on the floor, use your arms raise your chest up. Support yourself on your elbows for 30 seconds. Repeat twice daily, increasing the time to two minutes as you recover. FOLLOW-UP CARE: If you have been referred to a physician for follow-up care, call the physicians office for an appointment as you were instructed or within the next two days. If you experience worsening or a significant change in your symptoms, notify the physician immediately or return to the Emergency Department at any time for re-evaluation. Prescriptions: Methocarbamol [Robaxin 500 mg Tablet] 500 mg PO BIDP PRN #20 tablet PRN Reason: Referrals: KYLE SALAS FNP-C [NURSE PRACTITIONER] - Follow up as needed
[2018-08-11] MEDS ORDERED: LIDOCAINE 5% (700 MG) TRANSDERMAL ADH..PATCH TP ONE (14:50)
[2018-08-11 14:53] VITALS: BP 127/74
== END 2018-08-11 14:59 | disposition home or self-care (01) ==
LOC: ER 13:09
DX: S46.911A Strain of unspecified muscle, fascia and tendon at shoulder and upper arm level, right arm, initial encounter (principal); M25.511 Pain in right shoulder; M54.89 Other dorsalgia; M54.2 Cervicalgia; M54.5 Low back pain; X58.XXXA Exposure to other specified factors, initial encounter; I10 Essential (primary) hypertension; J45.909 Unspecified asthma, uncomplicated
CPT/HCPCS: 99283; A9270

== ENCOUNTER → 2018-08-26 | Outpatient (CLI) | payer MEDICARE, MEDICAID | LOC: LAB 17:15 | PROVIDERS: ATTEND Nurse Practitioner Family | DX: N39.0 Urinary tract infection, site not specified (principal) | CPT/HCPCS: 87086 ==

== ENCOUNTER 2018-09-15 18:22 | Emergency (ER) | payer MEDICARE, MEDICAID ==
[2018-09-15] MEDS ORDERED: ACETAMINOPHEN 325 MG TABLET PO ONE (19:45)
--- NOTE | 2018-09-15 20:13 | ER Document Report ---
HPI - HPI Time Seen by Provider: 09/15/18 19:45 Pain Level: 4 Notes: Patient is a 53-year-old female who presents the emergency department with chief complaint of fever, body aches, cough and congestion that started on Friday. Patient has not taken any medications at home for this. Patient's past medical history includes hypertension, denies any history of diabetes. Patient reports family member with similar symptoms. - CONSTITUTIONAL Constitutional: REPORTS: Fever, Chills - EENT EENT: REPORTS: Sore Throat. DENIES: Ear Pain, Eye problems - NEURO Neurology: REPORTS: Headache. DENIES: Weakness, Vision blurred, Dizzinesss / Vertigo - CARDIOVASCULAR Cardiovascular: DENIES: Chest pain - RESPIRATORY Respiratory: REPORTS: Coughing. DENIES: Trouble Breathing - GASTROINTESTINAL Gastrointestinal: DENIES: Abdominal Pain, Black / Bloody Stools - URINARY Urinary: DENIES: Dysuria, Urgency, Frequency - REPRODUCTIVE Reproductive: DENIES: : - MUSCULOSKELETAL Musculoskeletal: DENIES: Extremity pain Past Medical History - General Information source: Patient - Social History Smoking Status: Never Smoker Chew tobacco use (# tins/day): No Frequency of alcohol use: None Drug Abuse: None Family History: Hypertension, Reviewed & Not Pertinent Patient has suicidal ideation: No Patient has homicidal ideation: No - Past Medical History Cardiac Medical History: Reports: Hx Hypercholesterolemia, Hx Hypertension Pulmonary Medical History: Reports: Hx Asthma, Hx Bronchitis Neurological Medical History: Reports: Hx Migraine Renal/ Medical History: Denies: Hx Peritoneal Dialysis Musculoskeletal Medical History: Reports Hx Arthritis - back, Reports Hx Musculoskeletal Trauma - Muscle strain Psychiatric Medical History: Reports: Hx Bipolar Disorder, Hx Depression - anxiety - Immunizations Hx Diphtheria, Pertussis, Tetanus Vaccination: Yes Vertical Provider Document - CONSTITUTIONAL Notes: PHYSICAL EXAMINATION: GENERAL: Well-appearing, well-nourished and in no acute distress. HEAD: Atraumatic, normocephalic. EYES: Pupils equal round extraocular movements intact, conjunctiva are normal. ENT: Nares patent with clear rhinorrhea. No oropharynx erythema or swelling. No exudates. Uvula midline. NECK: Normal range of motion, no cervical lymphadenopathy. LUNGS: No respiratory distress, lung sounds clear to auscultation bilaterally Musculoskeletal: Normal range of motion NEUROLOGICAL: Normal speech, normal gait. PSYCH: Normal mood, normal affect. SKIN: Warm, Dry, normal turgor, no rashes or lesions noted. - INFECTION CONTROL TRAVEL OUTSIDE OF THE [place] IN LAST 30 DAYS: No Course - Re-evaluation Re-evalutation: Influenza is negative. Likely viral upper respiratory illness. Discussed [id number]-mqy-[id number] medications patient can take as well as ED return precautions. - Vital Signs Vital signs: Temp Pulse Resp BP Pulse Ox 102.1 F H 80 18 132/81 H 100 09/15/18 18:42 09/15/18 18:42 09/15/18 18:42 09/15/18 18:42 09/15/18 18:42 Discharge - Discharge Clinical Impression: Viral upper respiratory illness Condition: Stable Disposition: HOME, SELF-CARE Additional Instructions: Your symptoms are most likely due to a viral infection it should resolve over the next 7-14 days. You should take [id number]-[id number] guanfacine per bottle instructions to help thin the mucus. For nasal congestion: I would recommend that you get akrj-eed-miqqnon oxymetazoline also known is afrin. Use only per bottle instructions and be sure to never use this for more than 3 days if you can develop severe rebound congestion. You may also use tylenol or ibuprofen as needed for aches and thorat discomfort. Please be sure to drink plenty of fluids and get rest. Return to the emergency department he began having difficulty breathing, chest pain, persistent vomiting, or any other symptoms that are concerning to you. Prescriptions: Prednisone [Deltasone 20 mg Tablet] 3 tab PO DAILY 4 Days #12 tablet Referrals: KYLE SALAS FNP-C [NURSE PRACTITIONER] - Follow up as needed
[2018-09-15 20:39] LABS: A TYPE INFLUENZA AG NEGATIVE (NEGATIVE); B INFLUENZA AG NEGATIVE (NEGATIVE)
[2018-09-15] MEDS ORDERED: PREDNISONE 20 MG TABLET PO ONE (20:48)
[2018-09-15] MEDS ORDERED: BENZONATATE 100 MG CAPSULE PO ONE (20:48)
[2018-09-15 21:25] VITALS: BP 108/73
== END 2018-09-15 21:20 | disposition home or self-care (01) ==
LOC: ER 18:22
DX: J06.9 Acute upper respiratory infection, unspecified (principal); B97.89 Other viral agents as the cause of diseases classified elsewhere; R50.9 Fever, unspecified; R05 Cough; I10 Essential (primary) hypertension; J02.9 Acute pharyngitis, unspecified; R51 Headache; J45.909 Unspecified asthma, uncomplicated
CPT/HCPCS: 99283; 87804; A9270 ×3; J7512

== ENCOUNTER 2018-10-10 23:43 | Emergency (ER) | payer MEDICARE, MEDICAID ==
[2018-10-11 00:23] LABS: ABSOLUTE LYMPHOCYTES (AUTO) 2.6 10^3/uL (0.5-4.7); ABSOLUTE MONOCYTES (AUTO) 0.4 10^3/uL (0.1-1.4); ABSOLUTE NEUT (AUTO) 2.6 10^3/uL (1.7-8.2); BASOPHILS % (AUTO) 0.8 % (0-2); EOSINOPHILS % (AUTO) 0.6 % (0-6); HEMATOCRIT 39.2 % (36.0-47.0); LYMPHOCYTES % (AUTO) 45.2 % (13-45); MEAN CORPUSCULAR HEMOGLOBIN 27.6 pg (27.0-33.4); MEAN CORPUSCULAR HGB CONC 33.3 g/dL (32.0-36.0); MEAN CORPUSCULAR VOLUME 83 fl (80-97); MONOCYTES % (AUTO) 6.7 % (3-13); PLATELET COUNT 174 10^3/uL (150-450); RED BLOOD COUNT 4.73 10^6/uL (3.72-5.28); RED CELL DISTRIBUTION WIDTH 14.4 % (11.5-14.0); SEGMENTED NEUTROPHILS % (AUTO) 46.7 % (42-78); TOTAL CELLS COUNTED % (AUTO) 100 %; WHITE BLOOD COUNT 5.7 10^3/uL (4.0-10.5)
--- NOTE | 2018-10-11 00:40 | RADIOLOGY REPORT (SQ) ---
XR CHEST 1 VIEW HISTORY: Chest pain 07/29/2020. COMPARISON: None. FINDINGS: The heart size is normal. The lungs are clear. No pleural effusions or pneumothorax is seen. No acute bony findings. IMPRESSION: No evidence of acute cardiopulmonary disease.
[2018-10-11 00:47] LABS: ANION GAP 7 (5-19); BLOOD UREA NITROGEN 20 mg/dL (7-20); CALCIUM 9.6 mg/dL (8.4-10.2); CARBON DIOXIDE 26 mmol/L (22-30); CHLORIDE 107 mmol/L (98-107); GLUCOSE 103 mg/dL (75-110); POTASSIUM 4.6 mmol/L (3.6-5.0)
[2018-10-11] MEDS ORDERED: ACETAMINOPHEN 325 MG TABLET PO ONE (01:22)
[2018-10-11] MEDS ORDERED: TRAMADOL HCL 50 MG TABLET PO ONE (01:22)
--- NOTE | 2018-10-11 01:27 | ER Document Report ---
ED General - General Chief Complaint: Chest Pain Stated Complaint: CHEST PAIN WITH SYNCOPE Time Seen by Provider: 10/11/18 00:12 Notes: Patient is a 53-year-old female with a past medical history of hypertension who presents after an episode of syncope. Patient states that she was lying in bed, had to urinate, got up abruptly and while walking to the restroom became lightheaded and passed out. She arrives by EMS. She does state that she has had 1 week of chest discomfort which she describes as originating from her neck, radiating around her bilateral shoulders and intermittently to her chest. This is an aching, throbbing pain worsened by range of motion of the neck or palpation of the chest wall. She is uncertain of whether or not she has had similar symptoms in the past. She was given nitroglycerin by EMS without any relief of her chest discomfort. Does report that she has been working more recently, has not been keeping up with hydration. Recently discontinued her blood pressure medication due to feeling lightheaded. She has not contacted her primary care physician regarding today's concerns. TRAVEL OUTSIDE OF THE [place] IN LAST 30 DAYS: No - Related Data Allergies/Adverse Reactions: No Known Allergies Allergy (Verified 06/25/18 13:18) Past Medical History - General Information source: Patient - Social History Smoking Status: Never Smoker Chew tobacco use (# tins/day): No Frequency of alcohol use: None Drug Abuse: None Lives with: Friend Family History: Hypertension, Reviewed & Not Pertinent Patient has suicidal ideation: No Patient has homicidal ideation: No - Past Medical History Cardiac Medical History: Reports: Hx Hypercholesterolemia, Hx Hypertension Pulmonary Medical History: Reports: Hx Asthma, Hx Bronchitis Neurological Medical History: Reports: Hx Migraine Renal/ Medical History: Denies: Hx Peritoneal Dialysis Musculoskeletal Medical History: Reports Hx Arthritis - back, Reports Hx Musculoskeletal Trauma - Muscle strain Psychiatric Medical History: Reports: Hx Bipolar Disorder, Hx Depression - anxiety - Immunizations Hx Diphtheria, Pertussis, Tetanus Vaccination: Yes Review of Systems - Review of Systems Notes: Constitutional: Negative for fever. HENT: Negative for sore throat. Eyes: Negative for visual changes. Cardiovascular: Positive for chest discomfort and syncope Respiratory: Negative for shortness of breath. Gastrointestinal: Negative for abdominal pain, vomiting or diarrhea. Genitourinary: Negative for dysuria. Musculoskeletal: Negative for back pain. Skin: Negative for rash. Neurological: Negative for headaches, weakness or numbness. 10 point ROS negative except as marked above and in HPI. Physical Exam - Vital signs Vitals: Resp 20 10/11/18 00:00 Interpretation: Normal Notes: PHYSICAL EXAMINATION: GENERAL: Well-appearing, well-nourished and in no acute distress. HEAD: Atraumatic, normocephalic. EYES: Pupils equal round and reactive to light, extraocular movements intact, sclera anicteric, conjunctiva are normal. ENT: nares patent, oropharynx clear without exudates. Moist mucous membranes. NECK: Normal range of motion, supple without lymphadenopathy LUNGS: Breath sounds clear to auscultation bilaterally and equal. No wheezes rales or rhonchi. HEART: Regular rate and rhythm without murmurs Chest wall: Reproduction of pain on palpation of the anterior central chest ABDOMEN: Soft, nontender, normoactive bowel sounds. No guarding, no rebound. No masses appreciated. EXTREMITIES: Normal range of motion, no pitting or edema. No cyanosis. NEUROLOGICAL: No focal neurological deficits. Moves all extremities spontaneously and on command. PSYCH: Normal mood, normal affect. SKIN: Warm, Dry, normal turgor, no rashes or lesions noted. Course - Re-evaluation Re-evalutation: 10/11/18 01:24 Presentation of syncope likely secondary to orthostatic hypotension. Patient's blood pressure is borderline at 104/77 and she is actually normal hypertensive. Patient does appear clinically dehydrated on exam and had an episode of syncope in the context of rapidly going from a lying to standing position. Patient normotensive, alert, without focal neurologic deficits at time of arrival. In regards the patient's chest pain: This appears to be musculoskeletal or cervical in origin. It is entirely reproduced with palpation of the chest wall and/or movement of the neck. Patient is also had this discomfort for a full 1 week and that if this is not new or different tonight. Patient actually comes back on several occasions stating that the pain may have been longer than even a week may perhaps several weeks or even a month. I do not suspect that the chest pain is related to her episode of syncope tonight. Wells score 0. Troponin, EKG unremarkable. Patient has had improvement of her symptoms after receiving oral fluids. At this time will discharge with return precautions and follow-up recommendations. Verbal discharge instructions given a the bedside and opportunity for questions given. Medication warnings reviewed. Patient is in agreement with this plan and has verbalized understanding of return precautions and the need for primary care follow-up in the next 24-72 hours. - Vital Signs Vital signs: Temp Pulse Resp BP Pulse Ox 98.1 F 65 15 113/77 100 10/11/18 00:22 10/11/18 00:22 10/11/18 00:22 10/11/18 00:22 10/11/18 00:22 - Laboratory Result Diagrams: 10/11/18 00:05 10/11/18 00:05 Laboratory results interpreted by me: 10/11/18 10/11/18 00:05 00:05 RDW 14.4 H Lymphocytes % 45.2 H Creatinine 1.37 H Est GFR ( Amer) 49 L Est GFR (Non-Af Amer) 41 L - Diagnostic Test Radiology reviewed: Image reviewed, Reports reviewed Radiology results interpreted by me: 10/11/18 01:26 Chest x-ray: No acute infiltrate or pneumothorax - EKG Interpretation by Me Additional EKG results interpreted by me: 10/11/18 01:26 Sinus rhythm, rate 72. No ST elevations or depressions. QTC is 434. Discharge - Discharge Clinical Impression: Chest discomfort Syncope Qualifiers: Syncope type: unspecified Qualified Code(s): R55 - Syncope and collapse Condition: Good Disposition: HOME, SELF-CARE Additional Instructions: You were seen today for chest pain. The exact cause of your pain is unclear. However, based on your cardiac enzyme testing, chest x-ray, and EKG it does not appear that it is from an immediately life-threatening cause at this time. Although your testing here is normal is critical that you follow-up with your primary care physician for continued evaluation of this chest pain and possible stress testing. I recommended you see your physician within the next 24-48 hours to be evaluated for consideration of a stress test. Please return to emergency department immediately if you have worsening of your chest pain, shortness of breath, vomiting, become unable to exert yourself due to pain or difficulty breathing, you pass out, or have any pain that radiates into your arms, jaw, or back. Please also return if you have any additional symptoms that are concerning to you. You were seen today after an episode of passing out. Your EKG here is normal. At this time, we do not feel that your episode of passing out was from any life- threatening cause. Please drink plenty of fluids over the next several days. Return to emergency department if you have any further episodes of syncope, he adache, weakness, numbness, chest pain, or shortness of breath. Please follow up closely with your primary care physician.
[2018-10-11 02:00] VITALS: BP 104/77
--- NOTE | 2018-10-11 22:54 | EKG REPORT ---
SEVERITY:- NORMAL ECG - SINUS RHYTHM : Confirmed by: Wil Sears 11-Oct-2018 22:54:04
== END 2018-10-11 02:04 | disposition home or self-care (01) ==
LOC: ER 23:43
DX: R55 Syncope and collapse (principal); R07.9 Chest pain, unspecified; I10 Essential (primary) hypertension; J45.909 Unspecified asthma, uncomplicated
CPT/HCPCS: 93005; 99284; 36415; 85025; 80048; 84484; 71045; 93010; A9270 ×2

== ENCOUNTER → 2019-03-25 | Outpatient (CLI) | payer MEDICARE, MEDICAID ==
[2019-03-25 14:21] LABS: ABSOLUTE LYMPHOCYTES (AUTO) 2.3 10^3/uL (0.5-4.7); ABSOLUTE MONOCYTES (AUTO) 0.2 10^3/uL (0.1-1.4); ABSOLUTE NEUT (AUTO) 2.4 10^3/uL (1.7-8.2); BASOPHILS % (AUTO) 0.5 % (0-2); EOSINOPHILS % (AUTO) 0.8 % (0-6); HEMATOCRIT 42.2 % (36.0-47.0); LYMPHOCYTES % (AUTO) 46.6 % (13-45); MEAN CORPUSCULAR HEMOGLOBIN 27.4 pg (27.0-33.4); MEAN CORPUSCULAR HGB CONC 33.2 g/dL (32.0-36.0); MEAN CORPUSCULAR VOLUME 83 fl (80-97); MONOCYTES % (AUTO) 4.5 % (3-13); PLATELET COUNT 177 10^3/uL (150-450); RED BLOOD COUNT 5.12 10^6/uL (3.72-5.28); RED CELL DISTRIBUTION WIDTH 14.5 % (11.5-14.0); SEGMENTED NEUTROPHILS % (AUTO) 47.6 % (42-78); TOTAL CELLS COUNTED % (AUTO) 100 %
[2019-03-25 14:40] LABS: ALBUMIN 4.2 g/dL (3.5-5.0); ALKALINE PHOSPHATASE 108 U/L (38-126); ANION GAP 9 (5-19); ASPARTATE AMINO TRANSFERASE 20 U/L (14-36); BILIRUBIN,DIRECT 0.2 mg/dL (0.0-0.4); BILIRUBIN,TOTAL 0.5 mg/dL (0.2-1.3); BLOOD UREA NITROGEN 14 mg/dL (7-20); CALCIUM 9.5 mg/dL (8.4-10.2); CARBON DIOXIDE 27 mmol/L (22-30); CHLORIDE 101 mmol/L (98-107); GLUCOSE 128 mg/dL (75-110); POTASSIUM 4.8 mmol/L (3.6-5.0); TOTAL PROTEIN 7.4 g/dL (6.3-8.2)
== END ==
LOC: OD 12:08
PROVIDERS: ATTEND Nurse Practitioner Family
DX: R42 Dizziness and giddiness (principal)
CPT/HCPCS: 36415; 80053; 85025

== ENCOUNTER 2019-04-30 06:00 | Emergency (ER) | payer MEDICARE, MEDICAID ==
[2019-04-30 06:07] VITALS: BP 129/80
== END 2019-04-30 08:15 | disposition left against medical advice (07) ==
LOC: ER 06:00
DX: Z53.21 Procedure and treatment not carried out due to patient leaving prior to being seen by health care provider (principal); M79.10 Myalgia, unspecified site

== ENCOUNTER 2019-05-02 14:25 | Emergency (ER) | payer OTHER, MEDICARE, MEDICAID ==
--- NOTE | 2019-05-02 14:53 | ER Document Report ---
ED Medical Screen (RME) - General Chief Complaint: Pain All Over Stated Complaint: BODY ACHES/FEVER Time Seen by Provider: 05/02/19 14:45 Primary Care Provider: KYLE SALAS FNP-C [Primary Care Provider] - Follow up as needed Mode of Arrival: Ambulatory Information source: Patient Notes: This 53-year-old female presents emergency department with complaints of body aches and pains for months right flank pain for months, felt short of breath this morning, has nasal congestion for a week. Patient reports she has been evaluated by Dr. Wing and been referred to pain management. She reports oxycodone they gave her hurts her stomach. Patient is very angry irritated reports she was here yesterday and never seen by a provider. I have greeted and performed a rapid initial assessment of this patient. A comprehensive ED assessment and evaluation of the patient, analysis of test results and completion of the medical decision making process will be conducted by additional ED providers. Dictation of this chart was performed using voice recognition software; therefore, there may be some unintended grammatical errors. TRAVEL OUTSIDE OF THE [place] IN LAST 30 DAYS: No - Related Data Allergies/Adverse Reactions: No Known Allergies Allergy (Verified 05/02/19 14:44) Past Medical History - Social History Family history: Arthritis, Malignancy, CAD, CVA, Hyperlipidemia, Hypertension, Thyroid Disfunction - Past Medical History Cardiac Medical History: Reports: Hx Hypercholesterolemia, Hx Hypertension Pulmonary Medical History: Reports: Hx Asthma, Hx Bronchitis Neurological Medical History: Reports: Hx Migraine Renal/ Medical History: Denies: Hx Peritoneal Dialysis Musculoskeltal Medical History: Reports Hx Arthritis - back, Reports Hx Musculoskeletal Trauma - Muscle strain Psychiatric Medical History: Reports: Hx Bipolar Disorder, Hx Depression - anxiety - Immunizations Hx Diphtheria, Pertussis, Tetanus Vaccination: Yes Doctor's Discharge - Discharge Referrals: KYLE SALAS FNP-C [Primary Care Provider] - Follow up as needed
[2019-05-02 15:42] LABS: ABSOLUTE EOSINOPHILS # (AUTO) 0.1 10^3/uL (0.0-0.6); ABSOLUTE LYMPHOCYTES (AUTO) 1.3 10^3/uL (0.5-4.7); ABSOLUTE MONOCYTES (AUTO) 0.7 10^3/uL (0.1-1.4); ABSOLUTE NEUT (AUTO) 5.1 10^3/uL (1.7-8.2); BASOPHILS % (AUTO) 0.6 % (0-2); EOSINOPHILS % (AUTO) 0.7 % (0-6); HEMOGLOBIN 13.2 g/dL (12.0-15.5); LYMPHOCYTES % (AUTO) 18.4 % (13-45); MEAN CORPUSCULAR HEMOGLOBIN 27.2 pg (27.0-33.4); MEAN CORPUSCULAR HGB CONC 32.9 g/dL (32.0-36.0); MEAN CORPUSCULAR VOLUME 83 fl (80-97); MONOCYTES % (AUTO) 9.6 % (3-13); PLATELET COUNT 172 10^3/uL (150-450); RED BLOOD COUNT 4.84 10^6/uL (3.72-5.28); RED CELL DISTRIBUTION WIDTH 14.4 % (11.5-14.0); SEGMENTED NEUTROPHILS % (AUTO) 70.7 % (42-78); TOTAL CELLS COUNTED % (AUTO) 100 %; WHITE BLOOD COUNT 7.2 10^3/uL (4.0-10.5)
[2019-05-02 15:44] LABS: APPEARANCE,URINE CLEAR; BILIRUBIN,URINE NEGATIVE (NEGATIVE); COLOR,URINE STRAW; GLUCOSE, URINE NEGATIVE (NEGATIVE); KETONES,URINE NEGATIVE (NEGATIVE); LEUKOCYTE ESTERASE,URINE NEGATIVE (NEGATIVE); NITRITE,URINE NEGATIVE (NEGATIVE); PROTEIN,URINE NEGATIVE (NEGATIVE); URINE SPECIFIC GRAVITY 1.009; UROBILINOGEN,URINE NEGATIVE mg/dL (<2.0)
[2019-05-02] MEDS ORDERED: LORATADINE 10 MG TABLET PO ONE (15:44)
[2019-05-02] MEDS ORDERED: BENZONATATE 100 MG CAPSULE PO ONE (15:44)
[2019-05-02] MEDS ORDERED: KETOROLAC TROMETHAMINE 10 MG TABLET PO ONE (15:44)
[2019-05-02 16:01] LABS: ALBUMIN 3.8 g/dL (3.5-5.0); ALKALINE PHOSPHATASE 103 U/L (38-126); ANION GAP 7 (5-19); ASPARTATE AMINO TRANSFERASE 20 U/L (14-36); BILIRUBIN,DIRECT 0.1 mg/dL (0.0-0.4); BILIRUBIN,TOTAL 0.6 mg/dL (0.2-1.3); BLOOD UREA NITROGEN 15 mg/dL (7-20); CALCIUM 9.2 mg/dL (8.4-10.2); CARBON DIOXIDE 27 mmol/L (22-30); CHLORIDE 103 mmol/L (98-107); GLUCOSE 93 mg/dL (75-110); POTASSIUM 4.6 mmol/L (3.6-5.0); TOTAL PROTEIN 6.9 g/dL (6.3-8.2)
--- NOTE | 2019-05-02 16:16 | ER Document Report ---
ED General - General Chief Complaint: Pain All Over Stated Complaint: BODY ACHES/FEVER Time Seen by Provider: 05/02/19 14:45 Primary Care Provider: KYLE SALAS FNP-C [NURSE PRACTITIONER] - Follow up as needed Mode of Arrival: Ambulatory TRAVEL OUTSIDE OF THE [place] IN LAST 30 DAYS: No - HPI Notes: This is a 53-year-old female who presents today with multiple complaints. Patient complains of generalized body pains for some time now. Patient has had flank pain for months. She states she had a CT scan that was done last month and she was told to follow-up with orthopedics because he had "bone problems". Patient complains of some cough and nasal congestion, sneezing and rhinorrhea for the past 2 to 3 days. She also complains of urinary frequency and urgency. She denies any abdominal pain. She denies any fever or chills. She describes h er symptoms as moderate. - Related Data Allergies/Adverse Reactions: No Known Allergies Allergy (Verified 05/02/19 14:44) Past Medical History - General Information source: Patient - Social History Smoking Status: Never Smoker Chew tobacco use (# tins/day): No Frequency of alcohol use: None Drug Abuse: None Family History: Hypertension, Reviewed & Not Pertinent Patient has suicidal ideation: No Patient has homicidal ideation: No - Past Medical History Cardiac Medical History: Reports: Hx Hypercholesterolemia, Hx Hypertension Pulmonary Medical History: Reports: Hx Asthma, Hx Bronchitis Neurological Medical History: Reports: Hx Migraine Renal/ Medical History: Denies: Hx Peritoneal Dialysis Musculoskeletal Medical History: Reports Hx Arthritis - back, Reports Hx Musculoskeletal Trauma - Muscle strain Psychiatric Medical History: Reports: Hx Bipolar Disorder, Hx Depression - anxiety - Immunizations Hx Diphtheria, Pertussis, Tetanus Vaccination: Yes Review of Systems - Review of Systems Constitutional: denies: Chills, Fever EENT: Nose congestion, Nose discharge Cardiovascular: denies: Chest pain, Palpitations Respiratory: Cough Gastrointestinal: denies: Abdominal pain, Diarrhea, Nausea Genitourinary: Dysuria, Frequency, Urgency Musculoskeletal: Muscle pain Neurological/Psychological: denies: Weakness -: Yes All other systems reviewed and negative Physical Exam - Vital signs Vitals: Temp Pulse Resp BP Pulse Ox 99.0 F 80 14 110/90 H 100 05/02/19 14:51 05/02/19 14:51 05/02/19 14:51 05/02/19 14:51 05/02/19 14:51 Interpretation: Normal - General General appearance: Appears well, Alert - HEENT Head: Normocephalic, Atraumatic Eyes: Normal Conjunctiva: Normal Pupils: PERRL - Respiratory Respiratory status: No respiratory distress Chest status: Nontender Breath sounds: Normal Chest palpation: Normal - Cardiovascular Rhythm: Regular Heart sounds: Normal auscultation Murmur: No - Abdominal Inspection: Normal Distension: No distension Bowel sounds: Normal Tenderness: Nontender Organomegaly: No organomegaly - Back Back: Normal, Nontender, CVA tenderness - There is slight right CVA tenderness. - Extremities General upper extremity: Normal inspection, Nontender, Normal color, Normal ROM, Normal temperature General lower extremity: Normal inspection, Nontender, Normal color, Normal ROM, Normal temperature, Normal weight bearing. No: Jewel's sign - Neurological Neuro grossly intact: Yes Cognition: Normal Orientation: AAOx4 [place] Coma Scale Eye Opening: Spontaneous [place] Coma Scale Verbal: Oriented [place] Coma Scale Motor: Obeys Commands [place] Coma Scale Total: 15 Speech: Normal Motor strength normal: LUE, RUE, LLE, RLE Sensory: Normal - Skin Skin Temperature: Warm Skin Moisture: Dry Skin Color: Normal Course - Re-evaluation Re-evalutation: 05/02/19 16:15 Differential diagnosis includes allergic rhinitis versus sinusitis versus pneumonia versus bronchitis versus urinary tract infection. Flank pain is chronic, and patient had a recent CT scan done. There is no indication to repeat that. There is no clinical suspicion for acute appendicitis or other life-threatening intra-abdominal pathology. 05/02/19 17:53 Patient reevaluated. Patient is doing well. Feels much better. She is stable for discharge. Labs and imaging reviewed and discussed. - Vital Signs Vital signs: Temp Pulse Resp BP Pulse Ox 99.0 F 80 14 110/90 H 100 05/02/19 14:51 05/02/19 14:51 05/02/19 14:51 05/02/19 14:51 05/02/19 14:51 - Laboratory Result Diagrams: 05/02/19 15:26 05/02/19 15:26 Laboratory results interpreted by me: 05/02/19 05/02/19 15:26 15:26 RDW 14.4 H Sodium 136.9 L Est GFR ( Amer) 58 L Est GFR (MDRD) Non-Af 48 L Discharge - Discharge Clinical Impression: Body aches, Flank pain Allergic rhinitis Qualifiers: Allergic rhinitis trigger: unspecified Allergic rhinitis seasonality: unspecified Qualified Code(s): J30.9 - Allergic rhinitis, unspecified URI (upper respiratory infection) Qualifiers: URI type: unspecified viral URI Qualified Code(s): J06.9 - Acute upper respiratory infection, unspecified Condition: Good Disposition: HOME, SELF-CARE Instructions: Flank Pain ([facility]), Upper Respiratory Illness ([facility]) Prescriptions: Benzonatate [Tessalon Perles 100 mg Capsule] 100 mg PO Q8HP PRN #40 capsule PRN Reason: Naproxen 500 mg PO BID PRN #14 tablet PRN Reason: Cetirizine HCl [Zyrtec] 10 mg PO DAILY #20 tab.rapdis Forms: Return to Work Referrals: KYLE SALAS FNP-C [NURSE PRACTITIONER] - Follow up as needed
--- NOTE | 2019-05-02 16:54 | RADIOLOGY REPORT (SQ) ---
EXAM DESCRIPTION: CHEST 2 VIEWS COMPLETED DATE/TIME: 05/02/2019 4:42 pm REASON FOR STUDY: sob COMPARISON: 10/11/2018 TECHNIQUE: Frontal and lateral radiographic views of the chest acquired. NUMBER OF VIEWS: Two view. LIMITATIONS: None. FINDINGS: LUNGS AND PLEURA: No pneumothorax. No consolidation or pleural effusion. MEDIASTINUM AND HILAR STRUCTURES: Stable. HEART AND VASCULAR STRUCTURES: Stable. BONES: No acute findings. HARDWARE: None in the chest. OTHER: No other significant finding. IMPRESSION: NO ACUTE FINDINGS. TECHNICAL DOCUMENTATION: JOB ID: [id number] [place]-72 2010 [employer]- All Rights Reserved Reading location - IP/workstation name: [employer]
[2019-05-02 18:13] VITALS: BP 111/82
== END 2019-05-02 18:10 | disposition home or self-care (01) ==
LOC: ER 14:25
DX: J06.9 Acute upper respiratory infection, unspecified (principal); B97.89 Other viral agents as the cause of diseases classified elsewhere; J45.909 Unspecified asthma, uncomplicated; R10.9 Unspecified abdominal pain; G89.29 Other chronic pain; R05 Cough; R09.81 Nasal congestion; R06.7 Sneezing; J34.89 Other specified disorders of nose and nasal sinuses; R35.0 Frequency of micturition; R39.15 Urgency of urination; I10 Essential (primary) hypertension; R30.0 Dysuria; M79.10 Myalgia, unspecified site
CPT/HCPCS: 99283; 36415; 85025; 81025; 80053; 81001; 71046; J3490

== ENCOUNTER 2019-08-20 20:10 | Emergency (ER) | payer MEDICARE, MEDICAID ==
[2019-08-20] MEDS ORDERED: ACETAMINOPHEN 325 MG TABLET PO ONE ×2 (21:20→23:45)
[2019-08-20] MEDS ORDERED: LIDOCAINE 5% (700 MG) TRANSDERMAL ADH..PATCH TP ONE ×2 (21:20→23:45)
--- NOTE | 2019-08-20 21:22 | ER Document Report ---
ED Medical Screen (RME) - General Chief Complaint: Stiff Neck Stated Complaint: BACK PAIN,NECK PAIN Time Seen by Provider: 08/20/19 21:15 Primary Care Provider: MARAH HOWELL FNP-C [Primary Care Provider] - Follow up as needed Information source: Patient Notes: Patient presents complaining of neck pain to the right side of her neck and low back pain that radiates to the right lower extremity that started this evening. Patient states she was attempting to open a jar and that is what precipitated the neck pain. Patient denies any recent traumatic injury. Patient reports she has chronic back pain although does not typically have the radiation into the right lower extremity. Patient denies any fever or urinary retention. Patient does complain of urinary frequency. Patient had previously been managed by pain management although is in the process of switching providers at this time. I have greeted and performed a rapid initial assessment of this patient. A comprehensive ED assessment and evaluation of the patient, analysis of test results and completion of the medical decision making process will be conducted by additional ED providers. TRAVEL OUTSIDE OF THE [place] IN LAST 30 DAYS: No - Related Data Allergies/Adverse Reactions: No Known Allergies Allergy (Verified 05/02/19 14:44) Past Medical History - Social History Family history: Arthritis, Malignancy, CAD, CVA, Hyperlipidemia, Hypertension, Thyroid Disfunction - Past Medical History Cardiac Medical History: Reports: Hx Hypercholesterolemia, Hx Hypertension Pulmonary Medical History: Reports: Hx Asthma, Hx Bronchitis Neurological Medical History: Reports: Hx Migraine Renal/ Medical History: Denies: Hx Peritoneal Dialysis Musculoskeltal Medical History: Reports Hx Arthritis - back, Reports Hx Musculoskeletal Trauma - Muscle strain Psychiatric Medical History: Reports: Hx Bipolar Disorder, Hx Depression - anxiety - Immunizations Hx Diphtheria, Pertussis, Tetanus Vaccination: Yes Physical Exam - Vital signs Vitals: Temp Pulse Resp BP Pulse Ox 97.6 F 70 18 122/65 97 08/20/19 20:19 08/20/19 20:19 08/20/19 20:19 08/20/19 20:19 08/20/19 20:19 - General General appearance: Appears well, Alert Notes: Exaggerated pain response with very minimal palpation of the lower lumbar spine. Patient with lumbar paraspinal tenderness as well. Patient refuses to allow provider to assess for CVA tenderness Course - Vital Signs Vital signs: Temp Pulse Resp BP Pulse Ox 97.6 F 70 18 122/65 97 08/20/19 20:19 08/20/19 20:19 08/20/19 20:19 08/20/19 20:19 08/20/19 20:19 Doctor's Discharge - Discharge Referrals: MARAH HOWELL, [facility]-C [Primary Care Provider] - Follow up as needed
[2019-08-20 21:55] LABS: APPEARANCE,URINE SLIGHTLY-CLOUDY; BILIRUBIN,URINE NEGATIVE (NEGATIVE); COLOR,URINE YELLOW; GLUCOSE, URINE NEGATIVE (NEGATIVE); KETONES,URINE NEGATIVE (NEGATIVE); LEUKOCYTE ESTERASE,URINE TRACE (NEGATIVE); NITRITE,URINE NEGATIVE (NEGATIVE); PROTEIN,URINE NEGATIVE (NEGATIVE); URINE SPECIFIC GRAVITY 1.023; UROBILINOGEN,URINE NEGATIVE mg/dL (<2.0)
--- NOTE | 2019-08-21 00:50 | ER Document Report ---
ED General - General Chief Complaint: Stiff Neck Stated Complaint: BACK PAIN,NECK PAIN Time Seen by Provider: 08/20/19 21:15 Primary Care Provider: MARAH HOWELL FNP-C [Primary Care Provider] - Follow up as needed Information source: Patient TRAVEL OUTSIDE OF THE [place] IN LAST 30 DAYS: No - HPI Patient complains to provider of: Right-sided neck pain and right leg pain Onset: This morning Onset/Duration: Waxing and waning Quality of pain: Sharp Severity: Moderate Associated symptoms: None Relieved by: Other - Movement Notes: Patient presents complaining of 2 problems today. Patient states she has low right-sided back pain that radiates down into her right lower extremity. Patient also states that she has had right-sided neck pain since trying to open a jar at home earlier tonight. Patient denies headache, visual changes, slurred speech, chest pain, shortness of breath. Patient states that movement makes her symptoms worse and nothing alleviates her symptoms. - Related Data Allergies/Adverse Reactions: No Known Allergies Allergy (Verified 05/02/19 14:44) Past Medical History - General Information source: Patient - Social History Smoking Status: Never Smoker Family History: Hypertension, Reviewed & Not Pertinent Patient has suicidal ideation: No Patient has homicidal ideation: No - Past Medical History Cardiac Medical History: Reports: Hx Hypercholesterolemia, Hx Hypertension Pulmonary Medical History: Reports: Hx Asthma, Hx Bronchitis Neurological Medical History: Reports: Hx Migraine Renal/ Medical History: Denies: Hx Peritoneal Dialysis Musculoskeletal Medical History: Reports Hx Arthritis - back, Reports Hx Musculoskeletal Trauma - Muscle strain Psychiatric Medical History: Reports: Hx Bipolar Disorder, Hx Depression - anxiety - Immunizations Hx Diphtheria, Pertussis, Tetanus Vaccination: Yes Review of Systems - Review of Systems Constitutional: No symptoms reported EENT: No symptoms reported Cardiovascular: No symptoms reported Respiratory: No symptoms reported Gastrointestinal: No symptoms reported Genitourinary: No symptoms reported Female Genitourinary: No symptoms reported Musculoskeletal: See HPI Skin: No symptoms reported Hematologic/Lymphatic: No symptoms reported Neurological/Psychological: No symptoms reported -: Yes All other systems reviewed and negative Physical Exam - Vital signs Vitals: Temp Pulse Resp BP Pulse Ox 97.6 F 70 18 122/65 97 08/20/19 20:19 08/20/19 20:19 08/20/19 20:19 08/20/19 20:19 08/20/19 20:19 - General General appearance: Appears well In distress: None - HEENT Head: Normocephalic, Atraumatic Eyes: Normal Conjunctiva: Normal - Right trapezius exam is significant for mild muscle spasm and tenderness to palpation. No meningismus is noted on examination. - Extremities Notes: Left lower extremity straight leg raise test is negative. Straight leg raise test on right lower extremity is positive at approximately 25 degrees. - Neurological Neuro grossly intact: Yes Cognition: Normal Orientation: AAOx4 [place] Coma Scale Eye Opening: Spontaneous [place] Coma Scale Verbal: Oriented [place] Coma Scale Motor: Obeys Commands [place] Coma Scale Total: 15 Speech: Normal Motor strength normal: LUE, RUE, LLE, RLE Sensory: Normal - Psychological Associated symptoms: Normal affect Course - Vital Signs Vital signs: Temp Pulse Resp BP Pulse Ox 97.6 F 56 L 16 126/76 H 100 08/21/19 00:26 08/21/19 00:26 08/21/19 00:26 08/21/19 00:26 08/21/19 00:26 - Laboratory Laboratory results interpreted by me: 08/20/19 21:30 Ur Leukocyte Esterase TRACE H Discharge - Discharge Clinical Impression: Strain of right trapezius muscle Qualifiers: Encounter type: initial encounter Qualified Code(s): S46.811A - Strain of other muscles, fascia and tendons at shoulder and upper arm level, right arm, initial encounter Right-sided low back pain with sciatica Qualifiers: Chronicity: unspecified Sciatica laterality: sciatica of right side Qualified Code(s): M54.41 - Lumbago with sciatica, right side Condition: Good Disposition: HOME, SELF-CARE Instructions: Muscle Strain ([facility]) Additional Instructions: Return to the Emergency Department without delay if any worse. HOME CARE INSTRUCTIONS & INFORMATION: Thank you for choosing us for your medical needs. We hope you're satisfied with the care you received. After you leave, you must properly care for your problem and, at the same time, observe its progress. Any condition can change. Some illnesses can change rapidly over hours or days. If your condition worsens, return to the Emergency Department or see your physician promptly. ABOUT YOUR X-RAYS AND EKG'S: If you had an EKG or X-rays taken, they have been read by the Emergency Physician. The X-rays and EKG's will also be read by a Radiologist or Bookkeeping Machine Operator within 24 hours. If discrepancies are noted, you will be notified by telephone. Please be certain the ED has a correct telephone number & address where you can be reached. Also, realize that some fractures or abnormalities do not show up on initial X-rays. If your symptoms continue, see your physician. ABOUT YOUR LABORATORY TEST: If you had laboratory tests, the results have been reviewed by the Emergency Physician. Some test results (for example cultures) may not be available for several days. You will be contacted if any test result shows you need additional treatment. Please be certain the ED has a correct telephone number and address where you can be reached. ABOUT YOUR MEDICATIONS: You will receive instructions on how to take your medicine on the prescription label you receive. Additional information may be provided by the Pharmacy. If you have questions afterwards, call the ED for clarification or further instructions. Some prescribed medications may cause drowsiness. Do not perform tasks such as driving a car or operating machinery without consulting your Pharmacist. If you feel you need a refill of pain medication, your condition will need re-evaluation. Please do not call for a refill of any medication. ABOUT YOUR SIGNATURE: Signature of this document acknowledges to followin. Understanding that you received emergency treatment and that you may be released before al medical problems are known or treated. Please be certain the ED has a correct phone number & address where you can be reached. 2. Acknowledgement that you will arrange for follow-up care as recommended. 3. Authorization for the Emergency Physician to provide information to your follow-up Physician in order to maximize your care. AT ANY TIME, IF YOUR SYMPTOMS CHANGE SIGNIFICANTLY OR WORSEN OR YOU DEVELOP NEW SYMPTOMS, RETURN TO THE EMERGENCY DEPARTMENT IMMEDIATELY FOR RE-EVALUATION. OUR GOAL IS TO PROVIDE EXCELLENT MEDICAL CARE! WE HOPE THAT WE HAVE MET YOUR EXPECTATIONS DURING YOUR EMERGENCY DEPARTMENT VISIT AND THAT YOU FEEL YOU HAVE RECEIVED EXCELLENT CARE! Sciatica Your symptoms suggest "sciatica." The pain of sciatica typically radiates down the leg. Numbness in the foot or calf may also occur. Sciatica is caused by irritation of the sciatic nerve or its branches. The irritation can be due to a herniated disk in the spine, swelling and inflammation in the muscles surrounding the sciatic nerve, or direct injury of the nerve itself. Most cases of sciatica will resolve with medical treatment. Bed rest is usually recommended initially. Surgery is only necessary when the condition will not improve with rest and antiinflammatory medication. Muscle relaxers are often given if muscle soreness is present. A CAT scan of the back may be performed if a herniated disk is suspected. Re-examination is necessary if you develop increasing numbness, localized weakness in the foot or ankle, or if the pain does not respond to rest. Prescriptions: Prednisone [Deltasone 20 mg Tablet] 3 tab PO DAILY 4 Days #12 tablet Cyclobenzaprine HCl [Flexeril 10 mg Tablet] 10 mg PO TIDP PRN #15 tab PRN Reason: Forms: Return to Work Referrals: MARAH HOWELL FNP-C [Primary Care Provider] - Follow up as needed
[2019-08-21] MEDS ORDERED: KETOROLAC TROMETHAMINE 60 MG/2 ML SDV IM ONE (00:57)
[2019-08-21] MEDS ORDERED: PREDNISONE 20 MG TABLET PO ONE (00:57)
[2019-08-21 01:28] VITALS: BP 129/77
== END 2019-08-21 01:24 | disposition home or self-care (01) ==
LOC: ER 20:10
DX: S29.012A Strain of muscle and tendon of back wall of thorax, initial encounter (principal); X58.XXXA Exposure to other specified factors, initial encounter; M54.41 Lumbago with sciatica, right side; M54.2 Cervicalgia; M62.830 Muscle spasm of back; I10 Essential (primary) hypertension; J45.909 Unspecified asthma, uncomplicated
CPT/HCPCS: 99283; 96372; 81001; A9270 ×3; J1885; J7512

== ENCOUNTER 2020-05-19 21:36 | Emergency (ER) | payer BC, MEDICARE, MEDICAID ==
--- NOTE | 2020-05-19 22:56 | ER Document Report ---
ED General - General Chief Complaint: Constipation Stated Complaint: STOMACH PAIN Time Seen by Provider: 05/19/20 22:24 Primary Care Provider: MARAH HOWELL FNP-C [Primary Care Provider] - Follow up as needed TRAVEL OUTSIDE OF THE [place] IN LAST 30 DAYS: No - HPI Context: This is a 55-year-old female with a history of arthritis, on oxycodone for treatment of her arthritis, presenting to the emergency department complaining of abdominal pain and constipation. Patient states that she has not had a bowel movement in the past 3 days. Patient states she has diffuse abdominal pain and describes it as achy, rating it as a 3 out of 5. Patient denies fever, chills, nausea, vomiting. Patient states nothing exacerbates the symptoms and patient has tried taking magnesium citrate without relief of symptoms. Patient states she has not had any abdominal surgeries in the past. Patient denies fever, cough, shortness of breath, chest pain, history of COVID 19 infection, known exposure to persons positive for COVID 19 or persons under investigation for COVID 19. Patient states she was started on something different for her arthritis which she has not filled yet. Patient states she is passing gas Associated symptoms: Other - See HPI Exacerbated by: Other - See HPI Relieved by: Other - See HPI - Related Data Allergies/Adverse Reactions: No Known Allergies Allergy (Verified 05/02/19 14:44) Past Medical History - General Information source: Patient - Social History Smoking Status: Never Smoker Chew tobacco use (# tins/day): No Frequency of alcohol use: None Drug Abuse: None Family History: Hypertension, Reviewed & Not Pertinent Patient has homicidal ideation: No - Past Medical History Cardiac Medical History: Reports: Hx Hypercholesterolemia, Hx Hypertension Pulmonary Medical History: Reports: Hx Asthma, Hx Bronchitis Neurological Medical History: Reports: Hx Migraine Renal/ Medical History: Denies: Hx Peritoneal Dialysis Musculoskeletal Medical History: Reports Hx Arthritis - back, Reports Hx Musculoskeletal Trauma - Muscle strain Psychiatric Medical History: Reports: Hx Bipolar Disorder, Hx Depression - anxiety - Immunizations Hx Diphtheria, Pertussis, Tetanus Vaccination: Yes Review of Systems - Review of Systems Constitutional: No symptoms reported EENT: No symptoms reported Cardiovascular: No symptoms reported Respiratory: No symptoms reported Gastrointestinal: Abdominal pain, Constipation. denies: Vomiting Genitourinary: No symptoms reported Female Genitourinary: No symptoms reported Musculoskeletal: No symptoms reported Skin: No symptoms reported Hematologic/Lymphatic: No symptoms reported Neurological/Psychological: No symptoms reported -: Yes All other systems reviewed and negative Physical Exam - Vital signs Vitals: Temp Pulse Resp BP Pulse Ox 98.4 F 70 18 122/75 100 05/19/20 21:51 05/19/20 21:51 05/19/20 21:51 05/19/20 21:51 05/19/20 21:51 - Notes Notes: CONSTITUTIONAL [Vital signs reviewed, Patient appears comfortable, Alert and oriented X 3, Normal stature.] HEAD [Atraumatic, Normocephalic.] EYES [Eyes are normal to inspection, No discharge from eyes, Extraocular muscles intact, Sclera are normal, Conjunctiva are normal.] ENT Nose examination normal, Posterior pharynx normal, Mouth normal to inspection.] NECK [Normal ROM, No jugular venous distention, No meningeal signs] RESPIRATORY CHEST [Chest is nontender, Breath sounds normal, No respiratory distress.] CARDIOVASCULAR [RRR, No murmurs, Normal S1 S2, No rub, No gallop.] ABDOMEN [Abdomen is distended but nontender, No pulsatile masses, No other masses, Bowel sounds quiet, No peritoneal signs, No hernias.] BACK [There is no CVA Tenderness, There is no tenderness to palpation, Normal inspection.] UPPER EXTREMITY [Inspection normal, No cyanosis, No clubbing, No edema, 2+ radial pulses.] LOWER EXTREMITY [Inspection normal, No cyanosis, No clubbing, No edema, No calf tenderness, 2+ femoral pulses.] NEURO [No focal motor deficits, No focal sensory deficits, Speech normal.] SKIN [Skin is warm, Skin is dry, Skin is normal color.] PSYCHIATRIC [Normal affect. ] Course - Re-evaluation Re-evalutation: 05/19/20 23:50 Patient received soapsuds and mineral oil enema with positive results. Patient states she is feeling better this time and is ready to be discharged home. - Vital Signs Vital signs: Temp Pulse Resp BP Pulse Ox 98.4 F 70 18 122/75 100 05/19/20 22:26 05/19/20 21:51 05/19/20 21:51 05/19/20 21:51 05/19/20 21:51 - Diagnostic Test Radiology reviewed: Reports reviewed Discharge - Discharge Clinical Impression: Constipation due to opioid therapy Condition: Stable Disposition: HOME, SELF-CARE Instructions: Constipation ([facility]) Additional Instructions: Return to the Emergency Department without delay if any worse. HOME CARE INSTRUCTIONS & INFORMATION: Thank you for choosing us for your medical needs. We hope you're satisfied with the care you received. After you leave, you must properly care for your problem and, at the same time, observe its progress. Any condition can change. Some illnesses can change rapidly over hours or days. If your condition worsens, return to the Emergency Department or see your physician promptly. ABOUT YOUR X-RAYS AND EKG'S: If you had an EKG or X-rays taken, they have been read by the Emergency Physician. The X-rays and EKG's will also be read by a Radiologist or Concrete Block Molder within 24 hours. If discrepancies are noted, you will be notified by telephone. Please be certain the ED has a correct telephone number & address where you can be reached. Also, realize that some fractures or abnormalities do not show up on initial X-rays. If your symptoms continue, see your physician. ABOUT YOUR LABORATORY TEST: If you had laboratory tests, the results have been reviewed by the Emergency Physician. Some test results (for example cultures) may not be available for several days. You will be contacted if any test result shows you need additional treatment. Please be certain the ED has a correct telephone number and address where you can be reached. ABOUT YOUR MEDICATIONS: You will receive instructions on how to take your medicine on the prescription label you receive. Additional information may be provided by the Pharmacy. If you have questions afterwards, call the ED for clarification or further instructions. Some prescribed medications may cause drowsiness. Do not perform tasks such as driving a car or operating machinery without consulting your Pharmacist. If you feel you need a refill of pain medication, your condition will need re-evaluation. Please do not call for a refill of any medication. ABOUT YOUR SIGNATURE: Signature of this document acknowledges to followin. Understanding that you received emergency treatment and that you may be released before al medical problems are known or treated. Please be certain the ED has a correct phone number & address where you can be reached. 2. Acknowledgement that you will arrange for follow-up care as recommended. 3. Authorization for the Emergency Physician to provide information to your follow-up Physician in order to maximize your care. AT ANY TIME, IF YOUR SYMPTOMS CHANGE SIGNIFICANTLY OR WORSEN OR YOU DEVELOP NEW SYMPTOMS, RETURN TO THE EMERGENCY DEPARTMENT IMMEDIATELY FOR RE-EVALUATION. OUR GOAL IS TO PROVIDE EXCELLENT MEDICAL CARE! WE HOPE THAT WE HAVE MET YOUR EXPECTATIONS DURING YOUR EMERGENCY DEPARTMENT VISIT AND THAT YOU FEEL YOU HAVE RECEIVED EXCELLENT CARE! Referrals: MARAH HOWELL, INTERNATIONAL ACCOUNT EXECUTIVE-C [Primary Care Provider] - Follow up as needed
[2020-05-19] MEDS ORDERED: MINERAL OIL 30 ML UDCUP PR ONE (22:58)
--- NOTE | 2020-05-19 23:25 | RADIOLOGY REPORT (SQ) ---
EXAM DESCRIPTION: XR ABDOMEN 1 VIEW (KUB) COMPLETED DATE/TME: 05/19/2020 00:00 CLINICAL HISTORY: 55 years, Female, constipation COMPARISON: None. NUMBER OF VIEWS: TECHNIQUE: LIMITATIONS: None. FINDINGS: No evidence of bowel obstruction. There is a normal amount of stool in the colon. There are several calcified phleboliths in the pelvis. IMPRESSION: No acute finding. copyright 2010 [employer]- All Rights Reserved
[2020-05-20 00:15] VITALS: BP 128/74
== END 2020-05-20 00:14 | disposition home or self-care (01) ==
LOC: ER 21:36
DX: K59.03 Drug induced constipation (principal); T40.2X5A Adverse effect of other opioids, initial encounter; M47.9 Spondylosis, unspecified; I10 Essential (primary) hypertension; J45.909 Unspecified asthma, uncomplicated; Z79.891 Long term (current) use of opiate analgesic; R10.84 Generalized abdominal pain
CPT/HCPCS: 99283; 74018; J3490